=== PATIENT | female | born 1985 | race Caucasian/White ===

== ENCOUNTER → 2017-05-11 15:41 | Outpatient (CLI) | payer MEDICAID, SELFPAY ==
[2017-05-11 16:49] LABS: Absolute Lymphocyte Count 5.45 X10^3/ul (0.83-4.51); Absolute Neutrophil Count 7.5 X10^3/uL (2.0-7.7); Basophil# 0.06 X10^3/uL; Basophil% 0.4 % (0-1); Eosinophil# 0.38 X10^3/uL; Eosinophils% 2.7 % (0-5); Hematocrit 44.8 % (37-47); Hemoglobin 14.6 g/dl (12.0-15.0); Lymphocyte # 5.45 X10^3/ul (4.0); Lymphocyte % 38.6 % (19-41); Mean Corp Hgb Conc 32.6 g/gl (32-36); Mean Corpuscular Hgb 28.1 pg (27.0-32.0); Mean Corpuscular Volume 86.3 fL (81-99); Mean Platelet Vol. 9.4 fl (6.2-12.0); Monocyte# 0.71 X10^3/uL; Neutrophil # 7.48 X10^3/uL (2.7-7.7); Platelet Count 324 K/mm3 (150-450); RBC Distribution Width CV 13.9 % (11.6-14.6); RBC Distribution Width SD 43.6 fl (35.1-43.9); Red Blood Count 5.19 M/mm3 (4.2-5.4); White Blood Count 14.1 K/mm3 (4.4-11.0)
[2017-05-11 16:53] LABS: Differential Indicated SCAN CRITERIA MET; POSITIVE COUNT NO; POSITIVE DIFFERENTIAL YES; POSITIVE MORPHOLOGY NO
[2017-05-11 17:16] LABS: ALB/GLOB Ratio 1.1 RATIO (0.9-2.4); AST(SGOT) 17 U/L (15-37); Alanine Aminotransfer ALT/SGPT 38 U/L (13-56); Alkaline Phosphatase 93 U/L (45-117); Anion Gap 9 (5-15); BUN 13 mg/dL (7-18); BUN/Creat Ratio 17.8 RATIO (10-20); Calcium,Total 9.2 mg/dL (8.5-10.1); Chloride 105 mmol/L (98-107); Creatinine, Serum 0.73 mg/dL (0.55-1.02); EST Glomerular Filtration Rate 99 mL/min (>60); Est Glom Filt Rate - Afr Amer 120 mL/min (>60); Globulin 3.8 g/dL (2.2-4.2); Glucose 130 mg/dL (74-106); Potassium 3.6 mmol/L (3.5-5.1); Protein, Total 7.8 g/dL (6.4-8.2); Sodium Level 140 mmol/L (136-145); Thyroid Stim Hormone (TSH) 1.15 uIU/mL (0.358-3.74)
[2017-05-11 17:56] LABS: Platelet Estimate ADEQUATE (ADEQ)
[2017-05-12 08:53] LABS: Vitamin D,25 Hydroxy 21.1 ng/mL (29.95-100.01)
== END ==
PROVIDERS: Family Provider Family Medicine Geriatric Medicine; PCP Family Medicine Geriatric Medicine; Visit Provider Family Medicine Geriatric Medicine
DX: E55.9 Vitamin D deficiency, unspecified (principal); R53.83 Other fatigue
CPT/HCPCS: 36415; 80053; 82306; 84443; 85025

== ENCOUNTER 2017-05-31 05:37 | Emergency (ER) | payer MEDICAID, SELFPAY ==
[2017-05-31 05:38] VITALS: BP 167/109; PULSE 63; RESP 16; TEMP 36.6; O2SAT 96; BMI 35.0
--- NOTE | 2017-05-31 05:56 | ED.VISSUMM ---
- ER Visit Summary Date of Service: 05/31/17 Chief Complaint: Pruritic urticarial rash History of Present Illness: The patient is a 32 F presents with urticarial rash that is pruritic. Prior to going to bed there is slight erythema volar surface right wrist with raised area. She presents now because of itching all over and urticarial rash. She denies any ocular, visual auditory symptoms. She denies nasal congestion, postnasal drainage, sore throat or earache. She denies dysphonia or dysphagia. She denies swelling of her lips, tongue or throat. She denies shortness of breath or difficulty breathing. She denies palpitations or lightheadedness. She denies nausea vomiting or diarrhea. She denies abdominal pain. She reports allergy to amoxicillin and penicillin with similar reaction. She has taken no antibiotic in the past week. She is not consumed/ingested any berries, nuts or shellfish in the last 6-12 hours. Physical Examination: Vital signs remarkable blood pressure 167/89. Patient has an urticarial rash with multiple areas of excoriation. Head is atraumatic normocephalic. Pupils are equal round reactive. Extraocular muscles are intact. TMs are pearly white with landmarks noted. Nares patent with no drainage. Posterior pharynx without erythema or exudate. Uvula is midline. There is no dysphonia or dysphasia. There is no angioedema involving the face, lips, tongue or uvula. Trachea is midline. There is no stridor with auscultation of the neck. Heart is regular without murmur, gallop or rub. S1 and S2 are normal. Lungs are clear to auscultation with good movement of air bilaterally. Abdomen is soft nontender. Patient has an urticarial rash with areas of excoriation. Neuro exam is nonfocal. Test Results: None Emergency Department Course and Treatment: IV was established and patient was treated with 25 mg of Benadryl, 20 mg of Pepcid and 125 mg Solu-Medrol. Since this is not an anaphylactic reaction she was not given epinephrine. Patient was reassessed at 0645. She is no longer itching and her rash is 95% improved Treatment Plan: This is not an anaphylactic reaction she will be discharged with prescription for prednisone, Pepcid and Benadryl. She was instructed to follow-up with Dr. Novak for allergy testing Disposition: Discharged to home with outpatient follow-up in stable and improved condition Impression: Urticaria of unknown etiology This note was generated with [employer] dictation software. It may contain incorrect words, spelling, and punctuation that were not noted in review of the chart prior to signing ED Disposition - Plan for ED Patient: Disposition: Home or Assisted Living Chief Complaint: Allergic Reaction Instructions: ED Urticaria Prescriptions: Prednisone [Deltasone] 40 mg PO DAILY #6 tab Famotidine [Pepcid] 20 mg PO BID #6 tab DiphenhydrAMINE [Benadryl] 25 mg PO 4X/DAY #12 cap Referrals: Jerome Zacarias Chi, MD [Primary Care Provider] - 3-5 Days
[2017-05-31] MEDS: DiphenhydrAMINE 50 MG/ML Syringe 25 MG IV (06:00)
[2017-05-31] MEDS: MethylPREDNISolone 125 MG/2 ML Vial IV (06:00)
[2017-05-31 06:57] VITALS: BP 134/79; PULSE 67; RESP 15; O2SAT 98
== END 2017-05-31 07:00 | disposition home or self-care (01) ==
PROVIDERS: Emergency Provider Emergency Medicine; Family Provider Family Medicine Geriatric Medicine; PCP Family Medicine Geriatric Medicine
DX: L50.9 Urticaria, unspecified (principal); Z72.0 Tobacco use; Z79.84 Long term (current) use of oral hypoglycemic drugs; Z79.899 Other long term (current) drug therapy
CPT/HCPCS: 96374; 96375; 99284; A4216; J3490

== ENCOUNTER → 2017-06-07 12:08 | Outpatient (CLI) | payer MEDICAID, SELFPAY ==
[2017-06-12 03:07] LABS: Alternaria tenuis <0.10 kU/L (Class 0); Ash, White <0.10 kU/L (Class 0); Aspergillus fumigatus <0.10 kU/L (Class 0); Banana 0.25 kU/L (Class 0/I); Barley, Whole Grain <0.10 kU/L (Class 0); Beef <0.10 kU/L (Class 0); Bermuda Grass <0.10 kU/L (Class 0); Birch <0.10 kU/L (Class 0); Black Walnut <0.10 kU/L (Class 0); Carrot <0.10 kU/L (Class 0); Casein <0.10 kU/L (Class 0); Cashew <0.10 kU/L (Class 0); Cat Hair / Dander,Stand <0.10 kU/L (Class 0); Cedar, Mountain <0.10 kU/L (Class 0); Celery <0.10 kU/L (Class 0); Cheddar Cheese <0.10 kU/L (Class 0); Chicken <0.10 kU/L (Class 0); Chocolate <0.10 kU/L (Class 0); Cladosporium herbarum <0.10 kU/L (Class 0); Clam <0.10 kU/L (Class 0); Cockroach, American <0.10 kU/L (Class 0); Codfish <0.10 kU/L (Class 0); Corn <0.10 kU/L (Class 0); Cottonwood <0.10 kU/L (Class 0); Crab <0.10 kU/L (Class 0); D farinae Mite <0.10 kU/L (Class 0); D pteronyssinus <0.10 kU/L (Class 0); Dog Epithelia <0.10 kU/L (Class 0); Egg, White <0.10 kU/L (Class 0); Egg, Whole <0.10 kU/L (Class 0); Egg, Yolk <0.10 kU/L (Class 0); Elm, American White <0.10 kU/L (Class 0); Garlic <0.10 kU/L (Class 0); Gluten <0.10 kU/L (Class 0); Hazelnut/Filbert <0.10 kU/L (Class 0); Immunoglobulin E 66 IU/mL (0-100); Lettuce <0.10 kU/L (Class 0); Lobster <0.10 kU/L (Class 0); Maple/Box Elder <0.10 kU/L (Class 0); Milk (Cow) 0.45 kU/L (Class I); Mouse Urine <0.10 kU/L (Class 0); Mulberry, White <0.10 kU/L (Class 0); Oak, White <0.10 kU/L (Class 0); Oat <0.10 kU/L (Class 0); Onion <0.10 kU/L (Class 0); Orange <0.10 kU/L (Class 0); Pea <0.10 kU/L (Class 0); Peach <0.10 kU/L (Class 0); Peanut <0.10 kU/L (Class 0); Pecan <0.10 kU/L (Class 0); Penicillium Notatum <0.10 kU/L (Class 0); Pigweed, Rough <0.10 kU/L (Class 0); Pork <0.10 kU/L (Class 0); Potato, White <0.10 kU/L (Class 0); Ragweed, Short/Common <0.10 kU/L (Class 0); Rice <0.10 kU/L (Class 0); Russian Thistle <0.10 kU/L (Class 0); Rye <0.10 kU/L (Class 0); SCALLOP <0.10 kU/L (Class 0); SESAME SEED <0.10 kU/L (Class 0); Salmon <0.10 kU/L (Class 0); Sheep Sorrel <0.10 kU/L (Class 0); Shrimp <0.10 kU/L (Class 0); Soybean <0.10 kU/L (Class 0); Strawberry <0.10 kU/L (Class 0); Sycamore, American <0.10 kU/L (Class 0); Timothy Grass <0.10 kU/L (Class 0); Tomato <0.10 kU/L (Class 0); Tuna <0.10 kU/L (Class 0); Walnut, (Food) <0.10 kU/L (Class 0); Wheat <0.10 kU/L (Class 0); Yeast <0.10 kU/L (Class 0)
[2017-06-12 09:18] LABS: Apple <0.10 kU/L (Class 0)
[2017-06-12 09:19] LABS: Almond <0.10 kU/L (Class 0); Lactalbumin, Alpha 0.41 kU/L (Class I); Turkey <0.10 kU/L (Class 0)
== END ==
PROVIDERS: Family Provider Family Medicine Geriatric Medicine; PCP Family Medicine Geriatric Medicine; Visit Provider Family Medicine Geriatric Medicine
DX: T78.40XA Allergy, unspecified, initial encounter (principal)
CPT/HCPCS: 36415; 82785; 86003

== ENCOUNTER 2018-11-28 17:56 | Emergency (ER) | payer MEDICAID, SELFPAY ==
[2018-11-28 17:57] VITALS: BP 148/90; PULSE 74; RESP 18; TEMP 36.3; O2SAT 98; BMI 35.4
== END 2018-11-28 20:21 | disposition left against medical advice (07) ==
LOC: ED 20:08
PROVIDERS: Emergency Provider Emergency Medicine; Family Provider Family Medicine Geriatric Medicine; PCP Family Medicine Geriatric Medicine
DX: R20.0 Anesthesia of skin (principal)

== ENCOUNTER → 2019-05-02 | Outpatient (CLI) | payer MEDICAID, SELFPAY ==
[2019-05-02 17:24] LABS: Absolute Lymphocyte Count 4.74 X10^3/uL (0.83-4.51); Absolute Neutrophil Count 5.2 X10^3/uL (2.0-7.7); Basophil# 0.09 X10^3/uL; Basophil% 0.8 % (0-1); Eosinophil# 0.31 X10^3/uL; Eosinophils% 2.8 % (0-5); Hematocrit 44.4 % (37-47); Hemoglobin 14.2 g/dL (12.0-15.0); Lymphocyte # 4.74 X10^3/ul (4.0); Lymphocyte % 42.3 % (19-41); Mean Corpuscular Hgb 27.6 pg (27.0-32.0); Mean Corpuscular Volume 86.2 fL (81-99); Mean Platelet Vol. 9.4 fl (6.2-12.0); Monocyte% 7.1 % (0-10); NRBC Flagged by Analyzer 0 % (0-5); Neutrophil # 5.22 X10^3/uL (2.7-7.7); Neutrophil % 46.6 % (47-70); Platelet Count 305 K/mm3 (150-450); RBC Distribution Width CV 13.5 % (11.6-14.6); RBC Distribution Width SD 42.5 fl (35.1-43.9); Red Blood Count 5.15 M/mm3 (4.2-5.4); White Blood Count 11.2 K/mm3 (4.4-11.0)
[2019-05-02 18:05] LABS: ALB/GLOB Ratio 1.1 RATIO (0.9-2.4); AST(SGOT) 18 U/L (15-37); Alanine Aminotransfer ALT/SGPT 54 U/L (13-56); Albumin, Serum 3.9 g/dL (3.2-5.0); Alkaline Phosphatase 81 U/L (45-117); Anion Gap 6 (5-15); BUN 11 mg/dL (7-18); BUN/Creat Ratio 12.6 RATIO (10-20); Calcium,Total 8.7 mg/dL (8.5-10.1); Chloride 108 mmol/L (98-107); Creatinine, Serum 0.87 mg/dL (0.55-1.02); EST Glomerular Filtration Rate 80 mL/min (>60); Est Glom Filt Rate - Afr Amer 97 mL/min (>60); Globulin 3.5 g/dL (2.2-4.2); Glucose 75 mg/dL (74-106); Potassium 3.7 mmol/L (3.5-5.1); Protein, Total 7.4 g/dL (6.4-8.2); Sodium Level 138 mmol/L (136-145); Thyroid Stim Hormone (TSH) 1.76 uIU/mL (0.358-3.74)
== END | disposition home or self-care (01) ==
LOC: POLAB3 16:16
PROVIDERS: PCP Family Medicine Geriatric Medicine; Visit Provider Family Medicine Geriatric Medicine
DX: R53.83 Other fatigue (principal)
CPT/HCPCS: 36415; 80053; 84443; 85025

== ENCOUNTER → 2019-08-16 16:17 | Outpatient (CLI) | payer MEDICAID, SELFPAY ==
[2019-08-16 17:28] LABS: Absolute Lymphocyte Count 3.61 X10^3/uL (0.83-4.51); Absolute Neutrophil Count 9.3 X10^3/uL (2.0-7.7); Basophil# 0.06 X10^3/uL; Basophil% 0.4 % (0-1); Eosinophil# 0.21 X10^3/uL; Eosinophils% 1.5 % (0-5); Hematocrit 42.5 % (37-47); Hemoglobin 14.2 g/dL (12.0-15.0); Lymphocyte # 3.61 X10^3/ul (4.0); Lymphocyte % 25.7 % (19-41); Mean Corp Hgb Conc 33.4 g/dL (32-36); Mean Corpuscular Hgb 28.6 pg (27.0-32.0); Mean Corpuscular Volume 85.5 fL (81-99); Mean Platelet Vol. 9.6 fl (6.2-12.0); Monocyte# 0.74 X10^3/uL; Monocyte% 5.3 % (0-10); NRBC Flagged by Analyzer 0 % (0-5); Neutrophil # 9.32 X10^3/uL (2.7-7.7); Neutrophil % 66.5 % (47-70); Platelet Count 319 K/mm3 (150-450); RBC Distribution Width CV 13.6 % (11.6-14.6); RBC Distribution Width SD 42.2 fl (35.1-43.9); Red Blood Count 4.97 M/mm3 (4.2-5.4)
[2019-08-16 18:19] LABS: Color, Urine Yellow (Yellow); Glucose, Dipstick Normal (Normal); Ketone-Dipstick 50 mg/dl (Negative); Leukocyte Esterase-Dipstick Negative /ul (Negative); Nitrite-Dipstick Negative (Negative); Occult Blood-Urine Negative /ul (Negative); Protein-Dipstick Negative (Negative); Specific Gravity, Urine 1.025 (1.002-1.030); Urine Bilirubin Dipstick Negative (Negative); Urine Clarity Cloudy (Clear); Urine Urobilinogen Normal (Normal)
[2019-08-16 18:28] LABS: ALB/GLOB Ratio 0.9 RATIO (0.9-2.4); AST(SGOT) 11 U/L (15-37); Alanine Aminotransfer ALT/SGPT 21 U/L (13-56); Albumin, Serum 3.6 g/dL (3.2-5.0); Alkaline Phosphatase 67 U/L (45-117); Anion Gap 8 (5-15); BUN 6 mg/dL (7-18); BUN/Creat Ratio 9.6 RATIO (10-20); Calcium,Total 9.2 mg/dL (8.5-10.1); Chloride 107 mmol/L (98-107); Creatinine, Serum 0.62 mg/dL (0.55-1.02); EST Glomerular Filtration Rate 118 mL/min (>60); Est Glom Filt Rate - Afr Amer 143 mL/min (>60); Globulin 3.8 g/dL (2.2-4.2); Glucose 74 mg/dL (74-106); Potassium 3.6 mmol/L (3.5-5.1); Protein, Total 7.4 g/dL (6.4-8.2); Sodium Level 139 mmol/L (136-145); Thyroid Stim Hormone (TSH) 0.79 uIU/mL (0.358-3.74)
[2019-08-16 18:51] LABS: Amphetamine Urine VISTA NEGATIVE (<1000 ng/mL); Barbiturate Urine VISTA NEGATIVE (< 200 ng/mL); Benzodiazepine Urine VISTA NEGATIVE (< 200 ng/mL); Cocaine Urine VISTA NEGATIVE (< 300 ng/mL); Ecstacy Urine VISTA NEGATIVE (< 500 ng/mL); Methadone Urine VISTA NEGATIVE (< 300 ng/mL); PCP Urine VISTA NEGATIVE (< 25 ng/mL); THC Urine VISTA NEGATIVE (< 50 ng/mL); Vista UDS pH Range 5
[2019-08-16 19:11] LABS: Microalbumin,Random Urine 15.9 mg/L (NO RANGE EST.); Microalbumin:Creatinine Ratio 8.5 mg/g CRE (<30 mg/g CRE)
[2019-08-16 20:42] LABS: Hemoglobin A1c 5.4 % (3.8-5.6)
[2019-08-17 01:57] LABS: Prenatal RPR NONREACTIVE (NONREACTIVE)
[2019-08-17 10:38] LABS: HIV - WCH Non-Reactive (Nonreactive); Hepatitis B Surface Antigen Non-Reactive (Nonreactive); Hepatitis C Antibody Non-Reactive (Nonreactive); Vitamin D,25 Hydroxy 26.9 ng/mL
== END ==
PROVIDERS: PCP Family Medicine Geriatric Medicine; Visit Provider Obstetrics & Gynecology
DX: Z34.81 Encounter for supervision of other normal pregnancy, first trimester (principal)
CPT/HCPCS: 36415; 80053; 80307; 81002; 82043; 82306; 82570; 83036; 84443; 85025; 86703; 86762; 86803; 87340

== ENCOUNTER → 2019-09-13 | Outpatient (CLI) | payer MEDICAID, SELFPAY ==
[2019-09-13 13:19] LABS: Glucose Challenge Gest 1H 50g 212 mg/dL (70-140)
== END | disposition home or self-care (01) ==
LOC: WOBLAB 10:27
PROVIDERS: PCP Family Medicine Geriatric Medicine; Visit Provider Obstetrics & Gynecology
DX: Z34.82 Encounter for supervision of other normal pregnancy, second trimester (principal)
CPT/HCPCS: 36415; 82950

== ENCOUNTER 2019-10-04 13:17 | Outpatient (RCR) | payer MEDICAID, SELFPAY | END 2019-10-06 23:59 | LOC: DC 13:17 | PROVIDERS: PCP Family Medicine Geriatric Medicine; Visit Provider Obstetrics & Gynecology | DX: Z71.3 Dietary counseling and surveillance (principal); O24.410 Gestational diabetes mellitus in pregnancy, diet controlled; Z3A.00 Weeks of gestation of pregnancy not specified | CPT/HCPCS: 97802 ==

== ENCOUNTER 2019-10-09 10:38 | Outpatient (RCR) | payer MEDICAID, SELFPAY | END 2019-11-06 23:59 | LOC: DC 10:38 | PROVIDERS: PCP Family Medicine Geriatric Medicine; Visit Provider Obstetrics & Gynecology | DX: Z71.3 Dietary counseling and surveillance (principal); O24.410 Gestational diabetes mellitus in pregnancy, diet controlled; Z3A.00 Weeks of gestation of pregnancy not specified ==

== ENCOUNTER → 2019-10-09 | Outpatient (CLI) | payer MEDICAID, SELFPAY ==
[2019-10-12 04:09] LABS: AFP MoM Value 0.85 (.); AFP Value-EIA 32.2 ng/mL (.); Comment Report (.); DIA MoM Value 1.88 (.); DIA Value-EIA 278.77 pg/mL (.); DSR (By Age) 452 (.); DSR (Second Trimester) 320 (.); Gestat. Age Based On As provided (.); Gestational Age 18.1 WEEKS (.); Insulin Dep Diabetes No (.); Maternal Age At EDD 32.9 yr (.); hCG Value 35313 mIU/mL (.)
== END | disposition home or self-care (01) ==
LOC: WOBLAB 10:46
PROVIDERS: PCP Family Medicine Geriatric Medicine; Visit Provider Obstetrics & Gynecology
DX: Z34.82 Encounter for supervision of other normal pregnancy, second trimester (principal)
CPT/HCPCS: 36415; 82105; 82677; 84702

== ENCOUNTER 2019-12-27 09:35 | Outpatient (CLI) | payer MEDICAID, SELFPAY ==
[2019-12-27] VITALS (9 sets, daily range): BP systolic 139–159; BP diastolic 83–98; PULSE 68–73; TEMP 37.2–37.4; O2SAT 97; BMI 32.8
[2019-12-27 09:53] LABS: Hematocrit 39.4 % (37-47); Hemoglobin 12.6 g/dL (12.0-15.0); Mean Corpuscular Hgb 28.6 pg (27.0-32.0); Mean Corpuscular Volume 89.3 fL (81-99); Mean Platelet Vol. 9.4 fl (6.2-12.0); Platelet Count 305 K/mm3 (150-450); RBC Distribution Width CV 13.5 % (11.6-14.6); RBC Distribution Width SD 44.5 fl (35.1-43.9); Red Blood Count 4.41 M/mm3 (4.2-5.4); White Blood Count 14.2 K/mm3 (4.4-11.0)
[2019-12-27 10:43] LABS: ALB/GLOB Ratio 0.8 RATIO (0.9-2.4); AST(SGOT) 17 U/L (15-37); Alanine Aminotransfer ALT/SGPT 15 U/L (13-56); Albumin, Serum 2.9 g/dL (3.2-5.0); Alkaline Phosphatase 100 U/L (45-117); Anion Gap 7 (5-15); BUN 7 mg/dL (7-18); BUN/Creat Ratio 9.6 RATIO (10-20); Chloride 103 mmol/L (98-107); Creatinine, Serum 0.73 mg/dL (0.55-1.02); EST Glomerular Filtration Rate 98 mL/min (>60); Est Glom Filt Rate - Afr Amer 118 mL/min (>60); Globulin 3.8 g/dL (2.2-4.2); Glucose 177 mg/dL (74-106); Potassium 3.4 mmol/L (3.5-5.1); Protein, Total 6.7 g/dL (6.4-8.2); Sodium Level 135 mmol/L (136-145); Uric Acid 4.9 mg/dL (2.6-6.0)
--- NOTE | 2020-01-06 07:04 | OB.TRI.NOTE ---
- Problem List (1) Hypertension affecting Status: Acute Qualifiers: Trimester: third trimester Qualified Code(s): O16.3 - Unspecified maternal hypertension, third trimester History of Present Illness Date of Service: 12/27/19 Was patient seen by the physician?: No Reason For Visit: R/O PRE ECLAMPSIA Final REANNA: 03/10/20 Gestational age: 29 weeks 3 days History of Present Illness: 34yo G1 @ 29 3/7wga with cHTN and GDM sent to [facility] for evaluation of elevated BPs in the office. Denies headache, vision changes, abdominal pain. Allergies amoxicillin [From Augmentin] Allergy (Verified 11/28/18 18:00) Swelling clavulanic acid [From Augmentin] Allergy (Verified 11/28/18 18:00) Swelling Penicillins Allergy (Verified 11/28/18 18:00) Swelling - Pertinent Past Medical History Medical History: Past Medical History (Last Updated 01/06/20 @ 07:[address] Diane Conway MD) Chronic hypertension Laboratory Studies: Laboratory Tests 12/27/19 12/27/19 12/27/19 Range/Units 12:20 09:38 09:38 WBC 14.2 H (4.4-11.0) K/mm3 RBC 4.41 (4.2-5.4) M/mm3 Hgb 12.6 (12.0-15.0) g/dL Hct 39.4 (37-47) % MCV 89.3 (81-99) fL MCH 28.6 (27.0-32.0) pg MCHC 32.0 (32-36) g/dL RDW Std Deviation 44.5 H (35.1-43.9) fl RDW Coeff of Saad 13.5 (11.6-14.6) % Plt Count 305 (150-450) K/mm3 MPV 9.4 (6.2-12.0) fl Sodium 135 L (136-145) mmol/L Potassium 3.4 L (3.5-5.1) mmol/L Chloride 103 (98-107) mmol/L Carbon Dioxide 25.0 (21.0-32.0) mmol/L Anion Gap 7 (5-15) BUN 7 (7-18) mg/dL Creatinine 0.73 (0.55-1.02) mg/dL Est GFR (MDRD) Af Amer 118 (>60) mL/min Est GFR (MDRD) Non-Af 98 (>60) mL/min BUN/Creatinine Ratio 9.6 L (10-20) RATIO Glucose 177 H (74-106) mg/dL Uric Acid 4.9 (2.6-6.0) mg/dL Calcium 9.0 (8.5-10.1) mg/dL Total Bilirubin 0.20 (0.20-1.00) mg/dL AST 17 (15-37) U/L ALT 15 (13-56) U/L Alkaline Phosphatase 100 (45-117) U/L Total Protein 6.7 (6.4-8.2) g/dL Albumin 2.9 L (3.2-5.0) g/dL Globulin 3.8 (2.2-4.2) g/dL Albumin/Globulin Ratio 0.8 L (0.9-2.4) RATIO Blood Type O NEGATIVE Antibody Screen NEGATIVE Physical Exam Vitals: Vital Signs Temp Pulse BP Pulse Ox 99.3 F H 73 151/90 H 97 12/27/19 11:47 12/27/19 12:55 12/27/19 12:55 12/27/19 11:47 NST - FHR Rate Baby A Baseline: 140 Variability:: Moderate Accelerations:: 10 x 10 Decelerations:: None NST Reactive:: Yes, Appropriate for gestational age FHR Category:: Category I Uterine Activity:: 0/10 Impression/Plan 34yo @ 29 3/7wg with cHTN -BPs reviewed, mildly elevated here and preeclamptic labs negative. 24h urine also <<<300mg. -Start Labetalol PO -d/c home. f/u in offic.e
== END 2019-12-27 13:10 | disposition home or self-care (01) ==
LOC: LAB 09:37 → OBT 11:01
PROVIDERS: PCP Family Medicine Geriatric Medicine; Referring Provider Obstetrics & Gynecology; Visit Provider Obstetrics & Gynecology
DX: O13.3 Gestational [pregnancy-induced] hypertension without significant proteinuria, third trimester (principal); Z3A.00 Weeks of gestation of pregnancy not specified
CPT/HCPCS: 36415; 59025; 59050; 80053; 84550; 85027; 86850; 86900; 86901; 90384; 96372; 99218; G0378; J2790

== ENCOUNTER → 2020-01-01 | Outpatient (CLI) | payer MEDICAID, SELFPAY ==
[2020-01-01 09:50] LABS: 24 Hour Urine Protein 130.2 mg/24HR (<150 MG/24HR); 24HR. UA Prot. Total Volume 1400 mL; Urine Protein (24 Hour) 9.3 mg/dL (<11.9)
== END | disposition home or self-care (01) ==
LOC: LABSPEC 09:29
PROVIDERS: PCP Family Medicine Geriatric Medicine; Visit Provider Obstetrics & Gynecology
DX: O13.3 Gestational [pregnancy-induced] hypertension without significant proteinuria, third trimester (principal); Z3A.00 Weeks of gestation of pregnancy not specified
CPT/HCPCS: 81050; 84156

== ENCOUNTER → 2020-02-02 11:57 | Outpatient (CLI) | payer MEDICAID, SELFPAY ==
[2019-12-27 11:20] VITALS: BMI 32.8
--- NOTE | 2020-02-02 12:00 | US_ITS ---
HISTORY: well being. Biophysical profile. 40 images as well as 8 cine clips. No comparison imaging from this . Findings: Transabdominal imaging: Presentation is cephalic. Flow is present within the umbilical cord. The placenta is posterior fundal. heart motion is detected by M-mode imaging at 138 bpm. PRIMITIVO is 16.3 cm. The cervix is obscured by ossification within the skull, but perceived to be closed. The cervix is measured at about 3.9 cm Cine clips demonstrate pulsations within the aorta as well as breathing motion. US/Biophysical Prof W/O Non Stres IMPRESSION: SLIUP. Biophysical profile score is 8 out of 8.. at [id number] Reported and signed by: Moe Bailey MD Electronically Signed: Moe Bailey MD at 22:43 EST Tel , Service support ,
== END ==
PROVIDERS: PCP Family Medicine Geriatric Medicine; Referring Provider Obstetrics & Gynecology; Visit Provider Obstetrics & Gynecology
DX: O41.03X1 Oligohydramnios, third trimester, fetus 1 (principal); Z3A.00 Weeks of gestation of pregnancy not specified
CPT/HCPCS: 76819

== ENCOUNTER → 2020-02-16 | Outpatient (CLI) | payer MEDICAID, SELFPAY ==
[2019-12-27 11:20] VITALS: BMI 32.8
== END | disposition home or self-care (01) ==
LOC: LABSPEC 14:44
PROVIDERS: PCP Family Medicine Geriatric Medicine; Visit Provider Obstetrics & Gynecology
DX: Z36.85 Encounter for antenatal screening for Streptococcus B (principal)
CPT/HCPCS: 87081

== ENCOUNTER 2020-02-20 18:20 | Inpatient (IN) | payer MEDICAID, SELFPAY ==
[2019-12-27 11:20] VITALS: BMI 32.8
[2020-02-20] VITALS (8 sets, daily range): BP systolic 135–195; BP diastolic 76–95; PULSE 64–75; TEMP 37.1–37.3; O2SAT 98; BMI 34.9
[2020-02-20] MEDS: Lactated Ringers 1,000 ML 50 ML IV (20:00)
[2020-02-20 20:17] LABS: Absolute Lymphocyte Count 4.16 X10^3/uL (0.83-4.51); Absolute Neutrophil Count 9.8 X10^3/uL (2.0-7.7); Basophil# 0.07 X10^3/uL; Basophil% 0.5 % (0-1); Eosinophil# 0.24 X10^3/uL; Eosinophils% 1.6 % (0-5); Hematocrit 37.9 % (37-47); Hemoglobin 12.7 g/dL (12.0-15.0); Lymphocyte # 4.16 X10^3/ul (4.0); Lymphocyte % 27.1 % (19-41); Mean Corp Hgb Conc 33.5 g/dL (32-36); Mean Corpuscular Hgb 28.9 pg (27.0-32.0); Mean Corpuscular Volume 86.3 fL (81-99); Mean Platelet Vol. 10.1 fl (6.2-12.0); Monocyte# 0.93 X10^3/uL; Monocyte% 6.1 % (0-10); NRBC Flagged by Analyzer 0 % (0-5); Neutrophil # 9.75 X10^3/uL (2.7-7.7); Neutrophil % 63.5 % (47-70); Platelet Count 287 K/mm3 (150-450); RBC Distribution Width SD 43.4 fl (35.1-43.9); Red Blood Count 4.39 M/mm3 (4.2-5.4); White Blood Count 15.3 K/mm3 (4.4-11.0)
[2020-02-20 20:20] LABS: Bedside Glucose 137 mg/dL (70-110)
[2020-02-20] MEDS: Labetalol 200 MG Tablet PO (20:35)
[2020-02-20 20:58] LABS: Protein, Urine (Random) 8.6 mg/dL (<11.9); Protein:Creat Ratio 100 mg/g CRE (0-200)
[2020-02-20 21:00] LABS: AST(SGOT) 18 U/L (15-37); Alanine Aminotransfer ALT/SGPT 19 U/L (13-56); Creatinine, Serum 0.65 mg/dL (0.55-1.02); EST Glomerular Filtration Rate 112 mL/min (>60); Est Glom Filt Rate - Afr Amer 136 mL/min (>60); Estimated Creatinine Clearance 98.27 ml/min
--- NOTE | 2020-02-20 21:02 | HP.PCM_ITS ---
- Problem List (1) 37 weeks gestation of Status: Acute (2) Gestational diabetes Status: Acute Qualifiers: Gestational diabetes mellitus control: oral hypoglycemic-controlled Trimester: third trimester Qualified Code(s): O24.415 - Gestational diabetes mellitus in , controlled by oral hypoglycemic drugs (3) Hypertension affecting Status: Acute Qualifiers: Trimester: third trimester History Date of Admission: 02/20/20 Final REANNA: 03/10/20 Final REANNA Source: US <20 weeks Gestational age: 37 Weeks and 2 Days History of this : This is a 34 year-old, G [1], P [], at 37 2/7 weeks gestational age with hx cHTN, gestational diabetes with IUGR presents for scheduled induction of labor. Issues -hx PCOS -chronic hypertension -Low Vitamin D -IUGR - EFW [id number] 02/16/20 -Gestational diabetes Medical History: Medical History (Last Updated 02/20/20 @ 21:[address] Diane Conway MD) Polycystic ovarian syndrome E28.2 Chronic hypertension I10 Allergies amoxicillin [From Augmentin] Allergy (Verified 02/20/20 19:48) Swelling clavulanic acid [From Augmentin] Allergy (Verified 02/20/20 19:48) Swelling Penicillins Allergy (Verified 02/20/20 19:48) Swelling Home Medications: Home Medications Metformin HCl 500 mg PO BID 05/31/17 Cholecalciferol (VIT D3) [Vitamin D3] 1,000 units PO DAILY 12/27/19 Vits [Prenatabs FA] 1 tab PO DAILY 12/27/19 Labetalol [Trandate] 100 mg PO BID 02/20/20 Smoking Status: Light Smoker (<10/day) Alcohol: None Number of Fetus(es): 1 NST - FHR Rate Baby A Baseline: 135 Variability:: Moderate Accelerations:: 15 x 15 Decelerations:: None NST Reactive:: Yes FHR Category:: Category I Uterine Activity:: 0/10 min History Past Pregnancies: Past Pregnancies Delivery Date Name GA/ Weeks Outcome Route Wt Sex Labor Length Anesthesia Delivery Location Provider FOB Labs: Mom's Problem List Problem Status Onset Code Hypertension affecting Chronic O16.9 37 weeks gestation of Acute Z3A.37 Gestational diabetes Acute O24.419 Mom's Labs & Results 02/20/20 02/20/20 02/20/20 20:00 20:00 20:00 WBC 15.3 H RBC 4.39 Hgb 12.7 Hct 37.9 MCV 86.3 MCH 28.9 MCHC 33.5 RDW Std Deviation 43.4 RDW Coeff of Saad 14.0 Plt Count 287 MPV 10.1 Immature Gran % (Auto) 1.200 H Neut % (Auto) 63.5 Lymph % (Auto) 27.1 [place] % (Auto) 6.1 Eos % (Auto) 1.6 Baso % (Auto) 0.5 Absolute Neuts (auto) 9.8 H Absolute Lymphs (auto) 4.16 Nucleated RBC % 0 PT 12.3 INR 1.0 APTT 27.2 Sodium Potassium Chloride Carbon Dioxide Anion Gap BUN Creatinine Estim Creat Clear Calc Est GFR (MDRD) Af Amer Est GFR (MDRD) Non-Af BUN/Creatinine Ratio Glucose Uric Acid Calcium Total Bilirubin AST ALT Alkaline Phosphatase Total Protein Albumin U Random Total Protein Urine Creatinine Protein/Creatinin Ratio POC Glucose Blood Type Pending Antibody Screen Pending 02/20/20 02/20/20 02/20/20 20:00 20:15 20:35 WBC RBC Hgb Hct MCV MCH MCHC RDW Std Deviation RDW Coeff of Saad Plt Count MPV Immature Gran % (Auto) Neut % (Auto) Lymph % (Auto) [place] % (Auto) Eos % (Auto) Baso % (Auto) Absolute Neuts (auto) Absolute Lymphs (auto) Nucleated RBC % PT INR APTT Sodium Pending Potassium Pending Chloride Pending Carbon Dioxide Pending Anion Gap Pending BUN Pending Creatinine Pending 0.65 Estim Creat Clear Calc 98.27 Est GFR (MDRD) Af Amer Pending 136 Est GFR (MDRD) Non-Af Pending 112 BUN/Creatinine Ratio Pending Glucose Pending Uric Acid 6.0 Calcium Pending Total Bilirubin Pending AST Pending 18 ALT Pending 19 Alkaline Phosphatase Pending Total Protein Pending Albumin Pending U Random Total Protein Urine Creatinine Protein/Creatinin Ratio POC Glucose 137 H Blood Type Antibody Screen 02/20/20 20:35 WBC RBC Hgb Hct MCV MCH MCHC RDW Std Deviation RDW Coeff of Saad Plt Count MPV Immature Gran % (Auto) Neut % (Auto) Lymph % (Auto) [place] % (Auto) Eos % (Auto) Baso % (Auto) Absolute Neuts (auto) Absolute Lymphs (auto) Nucleated RBC % PT INR APTT Sodium Potassium Chloride Carbon Dioxide Anion Gap BUN Creatinine Estim Creat Clear Calc Est GFR (MDRD) Af Amer Est GFR (MDRD) Non-Af BUN/Creatinine Ratio Glucose Uric Acid Calcium Total Bilirubin AST ALT Alkaline Phosphatase Total Protein Albumin U Random Total Protein 8.6 Urine Creatinine 86.00 Protein/Creatinin Ratio 100 POC Glucose Blood Type Antibody Screen Course Did the patient receive Yes care? Labs Blood Type: O RH: NEGATIVE RPR/VDRL/Syphilis Nonreactive Rubella status Immune HbSAg Negative Date Done: 08/16/19 Chlamydia Negative Gonorrhea Negative HIV/AIDS Non-Reactive Group B Strep: Negative Current Obstetrical History Gestational Diabetes No Incompetent Cervix No Infertility No IUGR Yes Macrosomia No Hypertension/Pre-eclampsia Yes Placenta Previa/Abruption No PTL/PROM No Uterine anomaly No Oligohydramnios No Polyhydramnios No Multiple gestation No Past Medical History Asthma No Diabetes No Hypertension No Heart disease No Mitral valve prolapse No Neurologic/Seizure disorder/ No Migraines Kidney disease No Liver disease No Varicosities No Clotting disorders/Hx of DVT No Thyroid Dysfunction No Other medical diseases No Psychiatric disorders No Major trauma No Abnormal PAP smear No Sleep apnea No Mammogram in the last 2 years Yes: 2020 [facility] DETAILS of medical Routine mammogram history Social History Marital Status: SINGLE Alleged father Ed Hx Smoking Yes Smoking Status Current every day smoker Expected Infant Delivery Method: Spontaneous Vaginal Number of Visits: 10 Review of Systems Constitutional: Denies: Chills, Fever Cardiovascular: Denies: Chest Pain Respiratory: Denies: Cough Gastrointestinal: Denies: Abdominal Pain, Nausea, Vomiting Gynecological: Reports: - - Denies contractions, leaking of fluid. Denies: Vaginal bleeding Physical Exam Vitals: Vital Signs Temp Pulse BP Pulse Ox 99.2 F H 70 158/91 H 98 02/20/20 19:33 02/20/20 20:08 02/20/20 20:08 02/20/20 19:34 General: Alert, Oriented x3, Cooperative, No apparent distress HEENT: Atraumatic, Normocephalic Cardiovascular: Regular rate, Regular Rhythm, Normal S1, Normal S2 Lungs: Clear to auscultation, Normal air movement Abdomen: Soft, Non Tender, Non-Distended, Gravid Extremities:: No edema Neurological: Neuro grossly intact Estimated gestational size: Small for gestational age Assessment/Plan All Active Problems (Last Updated 02/20/20 @ 21:[address] 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 Preeclamptic labs pending. -Home dose metformin ordered - status overall reassuring -Pt refuses COVID19 screening
[2020-02-20 21:05] LABS: Prothrombin Time (Protime)PT. 12.3 SECONDS (11.7-14.9)
[2020-02-20 21:06] LABS: Partial Thromboplast Time 27.2 Seconds (24.1-36.2)
[2020-02-20 21:12] LABS: ALB/GLOB Ratio 0.8 RATIO (0.9-2.4); AST(SGOT) 18 U/L (15-37); Alanine Aminotransfer ALT/SGPT 19 U/L (13-56); Albumin, Serum 2.9 g/dL (3.2-5.0); Alkaline Phosphatase 154 U/L (45-117); Anion Gap 8 (5-15); BUN 9 mg/dL (7-18); BUN/Creat Ratio 13.9 RATIO (10-20); Calcium,Total 9.2 mg/dL (8.5-10.1); Chloride 108 mmol/L (98-107); Creatinine, Serum 0.65 mg/dL (0.55-1.02); EST Glomerular Filtration Rate 112 mL/min (>60); Est Glom Filt Rate - Afr Amer 136 mL/min (>60); Estimated Creatinine Clearance 98.27 ml/min; Globulin 3.8 g/dL (2.2-4.2); Glucose 134 mg/dL (74-106); Potassium 3.7 mmol/L (3.5-5.1); Protein, Total 6.7 g/dL (6.4-8.2); Sodium Level 139 mmol/L (136-145)
[2020-02-20] MEDS: Oxytocin 30 units/NS 500 ml 30 UNITS/500 ML IV.SOLN IV (21:12)
[2020-02-20 21:30] LABS: Bedside Glucose 126 mg/dL (70-110)
[2020-02-20] MEDS: metFORMIN (XR) 500 MG Tablet 1000 MG PO (22:46)
[2020-02-21] VITALS (62 sets, daily range): BP systolic 115–197; BP diastolic 64–110; PULSE 8–88; TEMP 36.2–37.3; O2SAT 81–99
[2020-02-21 00:51] LABS: Bedside Glucose 94 mg/dL (70-110)
[2020-02-21] MEDS: miSOPROStol 25 MCG TABLET PO (01:57)
[2020-02-21 04:56] LABS: Bedside Glucose 90 mg/dL (70-110)
[2020-02-21] MEDS: miSOPROStol 25 MCG TABLET 50 MCG PO ×2 (05:50→12:44)
--- NOTE | 2020-02-21 07:50 | PCM.PN.BLA ---
Progress Note LABOR PROGRESS NOTE Page has no complaints this morning. Denies contractions. AVSS GEN - NAD, AAO x 3 FHR 135, moderate variability, + accelerations, no decelerations TOCO 10 SVE deferred, reecnt exam /-3 at 0547 by RN A/P: 34yo G1 @ 37 3/7 wga, IOL for cHTN, GDMA2, IUGR, Cat I FHR -s/p misoprostol 25mcg. 50mcg given approximately 0600h this morning. -Pt to eat breakfast -Blood sugars improved following evening dose Metformin - will plan for qd Metformin 1000mg. Home dose not available. -BPs improved - continue Labetalol. Preeclamptic labs reviewed overnight and wnl. STROKE Vital Signs/Narrative: Vital Signs Temp Pulse BP Pulse Ox 02/21/20 05:45 64 98 02/21/20 05:43 97.2 F L 63 124/73 H 02/21/20 04:46 65 131/68 H 02/21/20 04:45 98.7 F
[2020-02-21 08:15] LABS: Bedside Glucose 76 mg/dL (70-110)
[2020-02-21] MEDS: Labetalol 200 MG Tablet PO ×3 (08:41→22:49)
[2020-02-21] MEDS: Labetalol (Prefilled) 20 MG/4 ML 10 MG IV (09:00)
[2020-02-21] MEDS: 0.9% Saline Lock 10 ML Syringe IV (09:02)
[2020-02-21 10:46] LABS: Bedside Glucose 84 mg/dL (70-110)
[2020-02-21] MEDS: 0.9% Normal Saline Single 100 ML IV.SOLN. INTRA-UTER (13:12)
[2020-02-21] MEDS: Prenatal Vits Tablet 1 TABLET PO (13:15)
--- NOTE | 2020-02-21 13:16 | PCM.PN.BLA ---
Progress Note LABOR PROGRESS NOTE Has mild contractions. AVSS GEN - NAD, AAO x 3 FHR 130, moderate variability, + accelerations, no decelerations TOCO irritability SVE /-3 A/P: 34yo G1 @ 37 3/7 wga, Cat I FHR -GDMA on Metformin -cHTN - Labetalo increased to tid 200mg -Maternal and statuses reassuring -Horta bulb placed, 30cc saline STROKE Vital Signs/Narrative: Vital Signs Temp Pulse BP Pulse Ox 02/21/20 12:45 98.6 F 88 140/69 H 98 02/21/20 11:50 98.4 F 66 115/65 97 02/21/20 10:33 64 139/86 H 02/21/20 09:57 63 145/85 H 02/21/20 09:55 98.5 F 60 98 02/21/20 09:29 61 148/78 H
[2020-02-21] MEDS: Lactated Ringers 500 ML 999 ML IV ×2 (14:10→23:34)
[2020-02-21] MEDS: Lactated Ringers 1,000 ML 50 ML IV (14:10)
[2020-02-21] MEDS: fentaNYL-bupivacaine (epidural) 100 ML BAG EPIDURAL ×2 (15:39→20:59)
[2020-02-21 16:21] LABS: Bedside Glucose 119 mg/dL (70-110)
[2020-02-21] MEDS: metFORMIN (XR) 500 MG Tablet 1000 MG PO (16:47)
[2020-02-21 17:05] LABS: Bedside Glucose 123 mg/dL (70-110)
[2020-02-21] MEDS: Oxytocin 30 units/NS 500 ml 30 UNITS/500 ML IV.SOLN IV (17:40)
[2020-02-21 18:00] LABS: Bedside Glucose 95 mg/dL (70-110)
[2020-02-21] MEDS: Lactated Ringers 1,000 ML 200 ML IV (19:13)
[2020-02-21 19:26] LABS: Bedside Glucose 81 mg/dL (70-110)
[2020-02-21 21:01] LABS: Bedside Glucose 64 mg/dL (70-110)
[2020-02-21 21:01] LABS: Bedside Glucose 56 mg/dL (70-110)
[2020-02-21 21:40] LABS: Bedside Glucose 101 mg/dL (70-110)
[2020-02-21 22:41] LABS: Bedside Glucose 75 mg/dL (70-110)
[2020-02-22] VITALS (125 sets, daily range): BP systolic 102–181; BP diastolic 56–100; PULSE 66–109; RESP 12–20; TEMP 36.3–37.6; O2SAT 93–100
[2020-02-22] MEDS: Labetalol (Prefilled) 20 MG/4 ML 10 MG IV (00:42)
[2020-02-22 01:00] LABS: Bedside Glucose 76 mg/dL (70-110)
[2020-02-22] MEDS: Labetalol (Prefilled) 20 MG/4 ML IV (01:00)
[2020-02-22] MEDS: Lactated Ringers 1,000 ML 200 ML IV (01:06)
[2020-02-22] MEDS: 0.9% Saline Lock 10 ML Syringe IV ×2 (01:10→01:15)
[2020-02-22] MEDS: Magnesium Sulfate 4gm/100mL 4 GM/100 ML IV.SOLN. IV (01:15)
[2020-02-22] MEDS: Labetalol (Prefilled) 20 MG/4 ML 40 MG IV (01:18)
[2020-02-22 01:25] LABS: Hematocrit 35.8 % (37-47); Hemoglobin 12.1 g/dL (12.0-15.0); Mean Corp Hgb Conc 33.8 g/dL (32-36); Mean Corpuscular Hgb 29.3 pg (27.0-32.0); Mean Corpuscular Volume 86.7 fL (81-99); Mean Platelet Vol. 10.3 fl (6.2-12.0); Platelet Count 246 K/mm3 (150-450); RBC Distribution Width CV 14.1 % (11.6-14.6); RBC Distribution Width SD 44.7 fl (35.1-43.9); Red Blood Count 4.13 M/mm3 (4.2-5.4); White Blood Count 21.1 K/mm3 (4.4-11.0)
[2020-02-22 01:26] LABS: Bedside Glucose 71 mg/dL (70-110)
[2020-02-22] MEDS: Magnesium Sulfate 20 GM/500 ML BAG IV ×2 (01:37→11:50)
[2020-02-22 01:40] LABS: AST(SGOT) 12 U/L (15-37); Alanine Aminotransfer ALT/SGPT 16 U/L (13-56); Uric Acid 5.4 mg/dL (2.6-6.0)
[2020-02-22 02:41] LABS: Bedside Glucose 75 mg/dL (70-110)
[2020-02-22] MEDS: fentaNYL-bupivacaine (epidural) 100 ML BAG EPIDURAL ×2 (03:45→10:04)
[2020-02-22] MEDS: Labetalol 200 MG Tablet PO ×2 (04:00→04:30)
[2020-02-22] MEDS: Ondansetron 4 MG/2 ML Vial IV (04:11)
[2020-02-22 05:11] LABS: Bedside Glucose 69 mg/dL (70-110)
[2020-02-22 05:11] LABS: Bedside Glucose 87 mg/dL (70-110)
[2020-02-22 05:56] LABS: Bedside Glucose 87 mg/dL (70-110)
[2020-02-22 06:50] LABS: Bedside Glucose 91 mg/dL (70-110)
--- NOTE | 2020-02-22 07:49 | PCM.PN.BLA ---
Progress Note LABOR PROGRESS NOTE No complaints. Vital Signs Temp Pulse Resp BP Pulse Ox 02/22/20 07:34 97.4 F L 87 12 102/56 L 96 02/22/20 07:29 87 102/56 L 02/22/20 07:28 84 94 02/22/20 07:27 97.9 F 87 96 02/22/20 06:16 99.6 F H 86 16 123/64 H 96 02/22/20 06:15 96 02/22/20 05:30 86 96 02/22/20 05:29 81 94 02/22/20 05:25 83 96 02/22/20 05:23 79 94 02/22/20 05:20 87 98 02/22/20 05:19 97 02/22/20 05:16 87 94 02/22/20 05:10 96 96 02/22/20 05:05 87 96 02/22/20 05:04 98.6 F 89 12 126/69 H 97 02/22/20 05:03 93 02/22/20 05:00 88 94 02/22/20 04:55 89 94 02/22/20 04:50 87 94 02/22/20 04:47 99 94 02/22/20 04:45 89 94 02/22/20 04:40 87 94 02/22/20 04:35 86 97 02/22/20 04:33 86 16 127/69 H 97 02/22/20 04:30 88 95 02/22/20 04:29 88 94 02/22/20 04:25 86 97 02/22/20 04:24 91 94 02/22/20 04:20 91 95 02/22/20 04:18 90 94 02/22/20 04:15 89 96 02/22/20 04:10 94 97 02/22/20 04:05 103 H 96 02/22/20 04:01 98.4 F 90 16 131/79 H 96 02/22/20 04:00 94 96 02/22/20 03:55 90 95 02/22/20 03:50 89 97 02/22/20 03:45 86 96 02/22/20 03:40 87 96 02/22/20 03:35 88 96 02/22/20 03:30 89 97 02/22/20 03:29 85 16 144/85 H 95 02/22/20 03:25 83 96 02/22/20 03:20 84 97 02/22/20 03:15 82 95 02/22/20 03:14 99.3 F H 83 18 141/82 H 96 02/22/20 03:10 86 96 02/22/20 03:05 85 97 02/22/20 03:00 83 96 02/22/20 02:59 83 140/81 H 96 02/22/20 02:55 92 97 02/22/20 02:50 81 96 02/22/20 02:45 83 96 02/22/20 02:44 80 136/80 H 02/22/20 02:43 99.1 F 83 20 H 136/80 H 96 02/22/20 02:40 84 96 02/22/20 02:35 84 95 02/22/20 02:30 84 96 02/22/20 02:28 83 137/82 H 96 02/22/20 02:25 84 96 02/22/20 02:20 81 97 02/22/20 02:18 81 18 142/82 H 96 02/22/20 02:15 84 96 02/22/20 02:10 93 98 02/22/20 02:08 87 154/89 H 98 02/22/20 02:05 85 95 02/22/20 02:00 92 96 02/22/20 01:59 83 16 153/92 H 96 02/22/20 01:55 87 96 02/22/20 01:53 87 94 02/22/20 01:50 96 95 02/22/20 01:49 85 18 147/92 H 95 02/22/20 01:45 96 96 02/22/20 01:40 93 96 02/22/20 01:38 90 125/69 H 02/22/20 01:37 98.3 F 96 16 97 02/22/20 01:35 95 95 02/22/20 01:30 98.9 F 96 20 H 129/69 H 95 02/22/20 01:28 93 02/22/20 01:25 96 96 02/22/20 01:15 108 H 168/92 H 02/22/20 01:12 109 H 168/92 H 02/22/20 00:56 85 178/100 H 02/22/20 00:40 86 175/96 H 02/22/20 00:24 84 181/99 H 02/22/20 00:21 98.5 F 02/22/20 00:17 91 96 02/22/20 00:12 81 98 02/22/20 00:10 88 120/83 H 02/21/20 23:59 180/110 H 02/21/20 23:40 76 188/105 H 02/21/20 23:27 98.9 F 02/21/20 23:24 74 182/103 H 97 02/21/20 22:26 69 96 02/21/20 22:25 99.1 F 146/90 H 02/21/20 21:32 62 98 02/21/20 21:31 98.4 F 146/85 H 02/21/20 20:41 62 148/89 H 02/21/20 20:25 69 97 02/21/20 20:24 98.8 F 71 164/87 H FHR 135, moderate variability, no accelerations, + variable deceleration TOCO 1-2/10 min SVE deferred, recent exam 9. a/p: 34yo G1 @ 37 4/7wga, IOL, hx GDMA2, cHTN, IUGR -Rpt exam approximately 0830h, if unchanged will start pitocin, if FD, proceed with second stage -Maternal and statuses overall reassuring STROKE Vital Signs/Narrative: Vital Signs Temp Pulse Resp BP Pulse Ox 02/22/20 07:34 97.4 F L 87 12 102/56 L 96 02/22/20 07:29 87 102/56 L 02/22/20 07:28 84 94 02/22/20 07:27 97.9 F 87 96 02/22/20 06:16 99.6 F H 86 16 123/64 H 96 02/22/20 06:15 96 02/22/20 05:30 86 96 02/22/20 05:29 81 94 02/22/20 05:25 83 96 02/22/20 05:23 79 94 02/22/20 05:20 87 98 02/22/20 05:19 97 02/22/20 05:16 87 94 02/22/20 05:10 96 96 02/22/20 05:05 87 96 02/22/20 05:04 98.6 F 89 12 126/69 H 97 12/17/20 05:03 93 20 05:00 88 94 20 04:55 89 94 20 04:50 87 94 20 04:47 99 94 20 04:45 89 94 20 04:40 87 94 02/22/20 04:35 86 97 02/22/20 04:33 86 16 127/69 H 97 02/22/20 04:30 88 95 02/22/20 04:29 88 94 20 04:25 86 97 02/22/20 04:24 91 94 20 04:20 91 95 02/22/20 04:18 90 94 02/22/20 04:15 89 96 02/22/20 04:10 94 97 02/22/20 04:05 103 H 96 02/22/20 04:01 98.4 F 90 16 131/79 H 96 02/22/20 04:00 94 96 02/22/20 03:55 90 95 02/22/20 03:50 89 97
[2020-02-22 08:00] LABS: Bedside Glucose 93 mg/dL (70-110)
[2020-02-22 08:36] LABS: Bedside Glucose 101 mg/dL (70-110)
[2020-02-22 10:05] LABS: Bedside Glucose 96 mg/dL (70-110)
[2020-02-22 10:56] LABS: Bedside Glucose 112 mg/dL (70-110)
[2020-02-22] MEDS: Oxytocin 30 units/NS 500 ml 30 UNITS/500 ML IV.SOLN 334 UNITS IV (11:57)
--- NOTE | 2020-02-22 12:09 | PCM.OPRPT ---
Vaginal Delivery Maternal Presentation: Medically Indicated Induction Method of Induction: Pitocin, Horta Bulb, Amniotomy Medical Reason for Induction: Gestational Hypertension, - - Intrauterine Growth Restriction Amniotic Membrane Rupture Type: Artificial Amniotic Fluid Description: Moderate meconium Final REANNA: 03/10/20 Final REANNA Source: US <20 weeks Gestational age: 37 Weeks and 4 Days [facility] doctor who attended delivery (if requested by OB): Misty Feliz MSBharati Date of Procedure: 02/22/20 Pre-Operative Diagnosis: IUP, Gestational Hypertension, IUGR, Gestational Diabetes Type A2 Post-Operative Diagnosis: IUP, Gestational Hypertension, IUGR, Gestational Diabetes Type A2 Surgery/ Procedure Performed: Vacuum Assisted Vaginal Delivery Type of Anesthesia: Epidural Description of Procedure: Spontaneous vaginal delivery of a viable male with Apgars of 8/9 from an occiput anterior presentation with moderately thick meconium stained fluid and three-vessel placenta. Cord around the neck x1 tight. No episiotomy or laceration. Kiwi vacuum used x1 gentle pull from low outlet to expedite delivery of the head due to deep variable decelerations with pushing. Sponges okay. Delivery physician: Jatinder Alfredo MD. Presentation: Vertex Placental Delivery Description: Spontaneous Placenta Disposition: Sent to Pathology Cord Vessel Description: 3 Vessels Cord Gases drawn per routine: ABG, VBG Cord Entanglement: Around neck x 1, tight Drain: Horta to straight drain Estimated Blood Loss: 250 cc Infant A gender: Male (1 minute): 8 (5 minute): 9 Episiotomy Description: None Laceration: None Medications given after delivery: IV Pitocin Complications: None
--- NOTE | 2020-02-22 12:17 | PLAC_PTH ---
PATIENT: BROOKLYNN YOU LOC: [facility] U#:[id number] AGE/SX: 34/F ROOM: WP014 RE02/20/[address]: Dr. Jatinder Alfredo MD : 1985 BED: 1 DIS: 02/23/2020 SPEC #: [id number] RECD: 02/22/20 13:21 STATUS: MARCK REQ #: [id number] IGNACIO: 02/22/20 12:[address]: Jatinder Alfredo DEPT: SURGICAL PATHOLOGY RECD BY: Sherri Carpio ENTERED: 02/23/20 08:04 SP TYPE: PLACENTA OTHR DR: Dr. Jerome Zacarias MD Tissues: Placenta, NOS Procedures: Surgery Specimen Level V HEADER OPERATION: Vaginal delivery PRE-OP DIAGNOSIS: Meconium stained fluid TISSUE SUBMITTED: Placenta MICROSCOPIC DIAGNOSIS Placenta: Placental disc - third trimester placenta (447 gm). Focal acute vasculitis of subamniotic blood vessels. Membranes - moderate acute chorioamnionitis. Umbilical cord - three blood vessels and moderate acute funisitis. SJ:donato 02/26/20 MICROSCOPIC DESCRIPTION Slides are reviewed. GROSS DESCRIPTION SPECIMEN: PLACENTA / CLINICAL INFORMATION: A. Weight: 2.49 kg B. Gestational Age: 37 weeks C. Sex: Male PLACENTAL WEIGHT (POST FIXATION): 447 gm PLACENTAL DIMENSIONS: 18 x 17 x 3 cm PLACENTAL SHAPE: Usual ovoid PLACENTAL WEIGHT FOR GESTATIONAL AGE: Within 10-99th percentile MEMBRANES - Present A. Insertion: Marginal B. Site of rupture from edge: 3 cm from edge of placental disc C. Color of membrane: Rolon-villafuerte D. Abnormalities: None UMBILICAL CORD - Present A. Color: Rolon-villafuerte B. Insertion: Near central C. Length: 37 cm D. Diameter: 1.5 cm E. Number of vessels: Three F. Abnormalities: None PLACENTAL DISC - Present A. Color of surface: Rolon-villafuerte B. surface abnormalities: None C. Maternal cotyledons: Intact with minimal tears D. Attached retro placental clot: No clot E. Cut surface: Dark red and spongy F. Lesions: None G. Separate clot: Absent SECTIONS SUBMITTED: 1. Umbilical cord ( end inked black) 2. Membrane roll 3. Placental disc, and maternal surfaces 4. Placental disc, and maternal surfaces 5. Placental disc, and maternal surfaces AM:donato 02/23/20 TC:2 CPT: 88391
[2020-02-22 13:21] LABS: Bedside Glucose 104 mg/dL (70-110)
[2020-02-22 13:21] LABS: Pathology Specimen OB SEE PATHOLOGY REPORT
[2020-02-22] MEDS: Labetalol 100 MG Tablet PO ×2 (15:30→22:08)
[2020-02-22] MEDS: Acetaminophen 500 MG Tablet 1000 MG PO (19:55)
[2020-02-22] MEDS: Ibuprofen 600 MG Tablet PO (21:01)
[2020-02-23] VITALS (10 sets, daily range): BP systolic 116–169; BP diastolic 56–81; PULSE 58–82; RESP 16–18; TEMP 36.2–36.8; O2SAT 97–98
[2020-02-23] MEDS: Labetalol 100 MG Tablet PO ×2 (05:17→14:15)
[2020-02-23 05:26] LABS: Bedside Glucose 78 mg/dL (70-110)
[2020-02-23 05:28] LABS: Hematocrit 33.1 % (37-47); Hemoglobin 10.7 g/dL (12.0-15.0); Mean Corp Hgb Conc 32.3 g/dL (32-36); Mean Corpuscular Hgb 28.7 pg (27.0-32.0); Mean Corpuscular Volume 88.7 fL (81-99); Mean Platelet Vol. 10.2 fl (6.2-12.0); Platelet Count 229 K/mm3 (150-450); RBC Distribution Width CV 14.3 % (11.6-14.6); RBC Distribution Width SD 46.6 fl (35.1-43.9); Red Blood Count 3.73 M/mm3 (4.2-5.4); White Blood Count 23.8 K/mm3 (4.4-11.0)
--- NOTE | 2020-02-23 08:15 | PCM.PN.BLA ---
Progress Note Patient seen - no complaints. Denies painfulness, she is out of bed ambulating, tolerates PO. Denies heavy lochia. Bottlefeeding. Will return for exam as patient desires to complete infant grooming. STROKE Vital Signs/Narrative: Vital Signs Temp Pulse Resp BP BP Pulse Ox 02/23/20 17:10 60 152/71 H 02/23/20 16:58 60 152/71 H 02/23/20 16:55 58 L 157/74 H 02/23/20 14:15 69 137/65 H 02/23/20 14:13 82 169/81 H 02/23/20 14:00 98.1 F 69 18 137/65 H 98
[2020-02-23] MEDS: Ibuprofen 600 MG Tablet PO (13:43)
--- NOTE | 2020-02-23 17:28 | DCINST_ITS ---
Discharge Diet: No Restrictions Discharge Activity: Return to Normal Activity, May Shower, May Take a Tub Bath May resume sexual activity in: 4-6 weeks Lifting Restrictions: 20-25lb Call your doctor if your incision/area has: Continuous Slow Oozing, Sudden Incre ased Bleeding, Increased Pain/ Swelling, Increased Redness, Foul Smelling Discharge Call your doctor if you observe: Fever of 101 or Higher, Inability to urinate, Inability to have a bowel movement, Using more than one pad per hour, Shortness of breath, Calf discomfort, Uncontrolled pain Additional Instructions: If you experience any of the following, contact your healthcare provider. * Bleeding that soaks a pad every hour for 2 hours * Fever 100.4 or higher * Unrelieved incision or abdominal pain * Swelling, redness, discharge or bleeding from your incision or episiotomy site * Your incision begins to separate * Problems urinating (including inability to urinate or burning while urinating). * Visual changes * Severe headache * Flu-like symptoms * Pain or redness in one of both of your breasts * Pain, warmth, tenderness or swelling in your legs, especially the calf area * Frequent nausea and vomiting * Symptoms of depression or anxiety If you experience any of the following, call 911 or go to the nearest Emergency Room. * Chest pain * Problems breathing * Seizure activity * Partial or complete paralysis of a body part, slurred speech, weakness or drooping of the face, or a sudden inability to walk or hold your balance Allergies/Adverse Reactions: Allergies amoxicillin [From Augmentin] Allergy (Verified 02/20/20 19:48) Swelling clavulanic acid [From Augmentin] Allergy (Verified 02/20/20 19:48) Swelling Penicillins Allergy (Verified 02/20/20 19:48) Swelling Medications to take at Discharge Vits [Prenatabs FA ] 1 tab PO DAILY 12/27/19 Labetalol [Trandate (Beta Jorden)] 100 mg PO TID #90 tab 02/23/20 The following prescriptions were given: Labetalol [Trandate (Beta Jorden)] 100 mg PO TID #90 tab Transmission Status: Pending to [facility] Please Follow Up With: Diane Ortega MD When: 2 -3 weeks Primary Care Physician: Jerome Zacarias Chi, MD [Primary Care Provider] - Test Results: Test results from this visit will be discussed in further detail at your follow- up appointment, if applicable.
--- NOTE | 2020-02-23 17:38 | PCM.PN.OB ---
Patient Problems: Active and Suspected Problems (Last Updated 02/20/20 @ 21:[address] Diane Conway MD) Hypertension affecting (Acute) 37 weeks gestation of (Acute) Gestational diabetes (Acute) Subjective: Continues to do well. Desires discharge home today. Denies headache, vision changes, heavy lochia. Objective: Vital Signs Temp Pulse Resp BP BP Pulse Ox 02/23/20 17:10 60 152/71 H 02/23/20 16:58 60 152/71 H 02/23/20 16:55 58 L 157/74 H 02/23/20 14:15 69 137/65 H 02/23/20 14:13 82 169/81 H 02/23/20 14:00 98.1 F 69 18 137/65 H 98 02/23/20 08:22 61 116/56 L 02/23/20 08:00 98.2 F 61 16 116/56 L 97 - Physical Exam Vitals/I&O's: Vital Signs Temp Pulse Resp BP Pulse Ox 98.1 F 60 18 152/71 H 98 02/23/20 14:00 02/23/20 17:10 02/23/20 14:00 02/23/20 17:10 02/23/20 14:00 Oxygen Delivery Method Room Air Weight: 86.727 kg Body Mass Index (BMI) 34.9 Intake and Output for Last 24 Hours 02/21/20 02/22/20 02/23/20 23:59 23:59 23:59 Intake Total 3880.43 / 3880.43 3045.98 / 3045.98 Output Total 2800 / 2800 3605 / 3605 Balance 1080.43 / 1080.43 -559.02 / -559.02 General: Alert, Oriented x3, Cooperative, No apparent distress HEENT: Atraumatic, Normocephalic Lungs: Clear to auscultation, Normal air movement Cardiovascular: Regular rate, Regular Rhythm, Normal S1, Normal S2 Abdomen: Soft, Non Tender, Non-Distended, - - Fundus firm and nontender Extremities: No edema, No Calf Tenderness Neurological: Neuro grossly intact Psych/Mental Status: Normal Affect, Appropriate, Alert and oriented to time, place, person, mood and affect Laboratory Results 02/23/20 05:13: POC Glucose 78 02/23/20 05:18: WBC 23.8 H, RBC 3.73 L, Hgb 10.7 L, Hct 33.1 L, MCV 88.7, MCH 28.7, MCHC 32.3, RDW Std Deviation 46.6 H, RDW Coeff of Saad 14.3, Plt Count 229, MPV 10.2 Current Medications Acetaminophen (Acetaminophen 500 Mg Tablet) 1,000 mg PO Q8H PRN PRN PRN Reason: Pain Score 1-3 Last Admin: 02/22/20 19:55 Dose: 1,000 mg Documented by: Bisacodyl (Bisacodyl 10 Mg Suppository) 10 mg RECTAL UD PRN PRN Reason: If no BM Dibucaine (Dibucaine 30 Gm Tube) 1 applic TOPICAL TID PRN PRN; Protocol PRN Reason: Discomfort Hydrocortisone (Hydrocortisone 2.5% Crm) 1 applic TOPICAL TID PRN PRN; Protocol PRN Reason: Discomfort Ibuprofen (Ibuprofen 600 Mg Tablet) 600 mg PO Q6H PRN PRN PRN Reason: Pain Score 1-3 Last Admin: 02/23/20 13:43 Dose: 600 mg Documented by: Labetalol HCl (Labetalol 100 Mg Tablet) 100 mg PO TID MADELINE Last Admin: 02/23/20 14:15 Dose: 100 mg Documented by: Methylergonovine Maleate (Methylergonovine 0.2 Mg/Ml Ampul) 0.2 mg IM X1 PRN PRN Reason: Excess bleeding/uterine atony Ondansetron HCl (Ondansetron 4 Mg/2 Ml Vial) 4 mg IV Q4H PRN PRN PRN Reason: Nausea Oxycodone HCl (Oxycodone 5 Mg Tablet) 5 - 10 mg PO Q4H PRN PRN PRN Reason: Pain Score 4-10 Senna/Docusate Sodium (Senna/Docusate Sodium 1 Tablet) 1 - 2 tablet PO DAILY PRN PRN PRN Reason: Constipation Simethicone (Simethicone 80 Mg Tablet) 80 mg PO PCHS PRN PRN Reason: Indigestion/Stomach pain Sodium Chloride (0.9% Saline Lock 10 Ml Syringe) 5 - 15 ml IV UD PRN PRN Reason: SALINE FLUSH Zolpidem Tartrate (Zolpidem Tartrate 5 Mg Tablet) 5 mg PO QHS PRN PRN PRN Reason: Insomnia Medical Necessity - Tobacco Use Smoking Status: Light Smoker (<10/day) Assessment/Plan All Active Problems (Last Updated 02/20/20 @ 21:[address] Diane Conway MD) Hypertension affecting (Acute) 37 weeks gestation of (Acute) Gestational diabetes (Acute) This is a 34 year-old, G [1], P [1 PPD#1 s/p VAVD hx uncontrolled cHTN, GDM -Will d/c home this evening -Continue new dose Labetalol tid -f/u in office in 2-3 weeks for BP check
== END 2020-02-23 18:20 | disposition home or self-care (01) | DRG 560 ==
PROVIDERS: Obstetrics & Gynecology; Admitting Provider Obstetrics & Gynecology; PCP Family Medicine Geriatric Medicine; Visit Provider Obstetrics & Gynecology
DX: O24.425 Gestational diabetes mellitus in childbirth, controlled by oral hypoglycemic drugs (principal); O10.92 Unspecified pre-existing hypertension complicating childbirth; O36.5930 Maternal care for other known or suspected poor fetal growth, third trimester, not applicable or unspecified; O99.334 Smoking (tobacco) complicating childbirth; F17.200 Nicotine dependence, unspecified, uncomplicated; O76 Abnormality in fetal heart rate and rhythm complicating labor and delivery; O69.1XX0 Labor and delivery complicated by cord around neck, with compression, not applicable or unspecified; O77.0 Labor and delivery complicated by meconium in amniotic fluid; Z3A.37 37 weeks gestation of pregnancy; Z37.0 Single live birth
CPT/HCPCS: 59025; 59050; 76815; 80053; 82565; 82570; 82962; 84156; 84450; 84460; 84550; 85025; 85027; 85610; 85730; 86850; 86900; 86901; 88307; 99218; J7120; A4216; G0378; J2405

== ENCOUNTER → 2020-05-31 11:49 | Outpatient (CLI) | payer MEDICAID, SELFPAY ==
[2020-02-20 19:47] VITALS: BMI 34.9
== END ==
PROVIDERS: PCP Family Medicine Geriatric Medicine; Visit Provider Obstetrics & Gynecology
DX: N39.0 Urinary tract infection, site not specified (principal)
CPT/HCPCS: 87086; 87088

== ENCOUNTER 2020-06-06 05:50 | Day surgery (SDC) | payer MEDICAID, SELFPAY ==
[2020-02-20 19:47] VITALS: BMI 34.9
[2020-05-31 10:30] LABS: Hematocrit 44.3 % (37-47); Hemoglobin 14.4 g/dL (12.0-15.0); Mean Corp Hgb Conc 32.5 g/dL (32-36); Mean Corpuscular Hgb 27.7 pg (27.0-32.0); Mean Corpuscular Volume 85.4 fL (81-99); Mean Platelet Vol. 9.4 fl (6.2-12.0); Platelet Count 325 K/mm3 (150-450); RBC Distribution Width CV 14.6 % (11.6-14.6); Red Blood Count 5.19 M/mm3 (4.2-5.4); White Blood Count 10.9 K/mm3 (4.4-11.0)
[2020-05-31 10:39] LABS: Partial Thromboplast Time 30.7 Seconds (24.1-36.2)
[2020-06-06] VITALS (10 sets, daily range): BP systolic 110–136; BP diastolic 58–88; PULSE 55–102; RESP 16–18; TEMP 36.4–36.9; O2SAT 91–100; BMI 34.2
[2020-06-06 06:19] LABS: Internal QC Validated? YES +Cl - CLEAR BKGD; Pregnancy, Urine Negative Negative
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
[2020-06-06] MEDS: Lactated Ringers 1,000 ML 100 ML IV ×2 (06:37→09:29)
--- NOTE | 2020-06-06 07:30 | FALS_PTH ---
PATIENT: BROOKLYNN YOU LOC: [facility] [place] U#:[id number] AGE/SX: 35/F ROOM: RE06/06/[address]: Dr. Edwar Zamora MD : 1985 BED: DIS: 06/06/2020 SPEC #: [id number] RECD: 06/06/20 11:03 STATUS: MARCK SENG #: [id number] IGNACIO: 06/06/20 07:[address]: Edwar Zamora DEPT: SURGICAL PATHOLOGY RECD BY: Sherri Carpio ENTERED: 06/06/20 12:20 SP TYPE: FALL TUBES OTHR DR: Dr. Jerome Zacarias MD Tissues: Fallopian tube Procedures: Surgery Specimen Level II Surgery Specimen Level IV HEADER OPERATION: Laparoscopic salpingectomy, Mid urethral sling PRE-OP DIAGNOSIS: Sterilization, stress incontinence TISSUE SUBMITTED: Bilateral fallopian tubes MICROSCOPIC DIAGNOSIS Right and left fallopian tubes, bilateral salpingectomies: Complete cross-sections of fallopian tubes. Benign paratubal cysts. AM:donato 06/07/2020 MICROSCOPIC DESCRIPTION Slides are reviewed. GROSS DESCRIPTION Received in fixative is one container labeled with the patient's name and designated bilateral fallopian tubes. The specimen consists of bilateral fallopian tubes including fimbrial ends measuring 7 cm in length and 0.5 cm in diameter and 7 cm in length and 0.5 cm in diameter. One of the fallopian tubes show three paratubal cysts, the largest measuring 1.1 cm in greatest dimension. The fallopian tubes are not identified as right or left. Sections reveal unremarkable cut surfaces. Arabic Teacher sections are submitted in two cassettes with each cassette containing one fallopian tube. Cassette 2 also contains the paratubal cyst. / SJ:donato 06/06/20 TC:5 CPT: 25718, 51122
[2020-06-06] MEDS: Lidocaine 1% /Epi 1:100 (20ml) 20 ML Vial (08:45)
--- NOTE | 2020-06-06 09:13 | PCM.OPRPT ---
Report of Operation Date of Procedure: 06/06/20 Pre-Operative Diagnosis: Desires permanent sterilization, stress urinary incontinence Post-Operative Diagnosis: Desires permanent sterilization, stress urinary incontinence Surgery/Procedure Performed:: Laparoscopic bilateral salpingectomy, transvaginal tape, cystoscopy Description of Surgical Findings:: Surgeon: Edwar Zamora MD Anesthesia: General EBL: 50 cc Urine output: 200 cc Fluids: 800 cc Complications: None Specimen: Bilateral fallopian tubes Findings: Normal uterus, tubes, and ovaries. Post procedure cystoscopy with no signs of pathology, no signs of bladder perforation or mesh noted. Consent: Patient with desire permanent sterilization and stress urinary incontinence in need of diagnostic laparoscopy bilateral salpingectomy transvaginal tape and cystoscopy. Patient understands the risk of the procedure include but are not limited to visceral or vascular injury, prolonged hospitalization, blood loss need for transfusion, reoperation. Also discussed mesh complications and possible need for intermittent or home Horta catheter. Patient states understanding wish to proceed. All questions were answered consent was signed. Procedure: Patient was brought back to the OR where general anesthesia found be adequate. Gentamicin and clindamycin were given for infection prophylaxis. Patient was prepared and draped in a dorsal lithotomy position with yellowfin stirrups. Weighted speculum is placed the posterior aspect of vagina and cervical dilators were used to dilate the cervix. Uterine manipulator was placed. Varies needle was inserted at the umbilicus, water safety test was passed, abdomen was insufflated. Laparoscope was inserted and above findings were noted. Bilateral 5 mm and 8 mm trochars were inserted under direct visualization. Using atraumatic grasper the left fallopian tube was identified to the fimbriae and the mesosalpinx was cut and cauterized left lobe tube was removed and sent to pathology. In a similar fashion the right fallopian tube was identified to the fimbria and the mesosalpinx was cut and cauterized fallopian tube was removed from the abdominal cavity and sent to pathology. Good hemostasis was noted. Abdomen was deflated. Laparoscopic incisions were closed in a subcutaneous fashion. Uterine manipulator was removed. Lidocaine with epi was injected in the periurethral/vaginal mucosa. Infra urethral vaginal mucosal incision was made. Periurethral fascia was dissected bilaterally. Right mesh trocar and guided posterior portion of the pubic bone. Similar fashion the left trocar was guided along the posterior portion of the pubic bone lateral to the urethra and bladder. During both trocar placements the bladder was deviated with a Horta catheter stylette. Cystoscopy was performed and above findings were noted. Bilateral mesh was adjusted in the standard fashion. Suprapubic mesh was cut at the skin line, incisions closed with skin glue. Vaginal mucosa was closed in continuous running locked fashion. Good hemostasis was noted. All counts correct x2. Patient tolerated procedure well was brought to recovery in stable condition. senior payroll manager: Consuelo Woodard
--- NOTE | 2020-06-06 09:21 | PCM.DC.D&C ---
Discharge Diet: No Restrictions Discharge Activity: Return to Normal Activity, May Drive, May not drive while taking narcotic pain medications., May Shower, - - No tub baths for 2 weeks May resume sexual activity in: 4-6 weeks Lifting Restrictions: no lifting over 25 pounds for 2 weeks Call your doctor if your incision/area has: Continuous Slow Oozing, Foul Smelling Discharge Call your doctor if you observe: Fever of 101 or Higher, Shortness of breath, Chest pain Allergies/Adverse Reactions: Allergies amoxicillin [From Augmentin] Allergy (Verified 06/06/20 06:20) Swelling clavulanic acid [From Augmentin] Allergy (Verified 06/06/20 06:20) Swelling Penicillins Allergy (Verified 06/06/20 06:20) Swelling Medications to take at Discharge Oxycodone [Oxyir] 5 mg PO Q6H PRN PRN 6 Days #24 tablet 06/06/20 The following prescriptions were given: Oxycodone [Oxyir] 5 mg PO Q6H PRN PRN 6 Days #24 tablet PRN Reason: Pain Score 6-10 Transmission Status: Sent to [facility] [place] [address] Primary Care Physician: Jerome Zacarias Chi, MD [Primary Care Provider] - Test Results: Test results from this visit will be discussed in further detail at your follow-up appointment, if applicable. Please Follow Up With: Edwar Zamora MD When: 2 weeks
[2020-06-06] MEDS: oxyCODONE 5 MG Tablet PO (12:07)
--- NOTE | 2020-06-06 12:09 | SUR.PHASEII ---
unable to void. bladder scanned for 50ml
== END 2020-06-06 16:31 | disposition home or self-care (01) ==
LOC: SDC 05:50 → AC 05:51
PROVIDERS: Anesthesiology; PCP Family Medicine Geriatric Medicine; Referring Provider Obstetrics & Gynecology; Visit Provider Obstetrics & Gynecology
PROC: (CPT 58661; principal; 2020-06-06 07:15)
DX: N39.3 Stress incontinence (female) (male) (principal); N83.8 Other noninflammatory disorders of ovary, fallopian tube and broad ligament; Z30.2 Encounter for sterilization; F17.210 Nicotine dependence, cigarettes, uncomplicated; Z20.822 Contact with and (suspected) exposure to COVID-19
CPT/HCPCS: 00860; 52000; 57288; 58661; 36415; 81025; 85027; 85610; 85730; 86850; 86900; 86901; 87426; 88302; 88305; C9803; J7120; J2405

== ENCOUNTER → 2020-12-09 | Outpatient (CLI) | payer MEDICAID, SELFPAY ==
[2020-12-09 13:41] LABS: Hematocrit 46.1 % (37-47); Hemoglobin 15.2 g/dL (12.0-15.0); Mean Corpuscular Hgb 28.3 pg (27.0-32.0); Mean Corpuscular Volume 85.7 fL (81-99); Mean Platelet Vol. 9.9 fl (6.2-12.0); Platelet Count 323 K/mm3 (150-450); RBC Distribution Width CV 13.6 % (11.6-14.6); RBC Distribution Width SD 41.8 fl (35.1-43.9); Red Blood Count 5.38 M/mm3 (4.2-5.4); White Blood Count 10.2 K/mm3 (4.4-11.0)
[2020-12-09 14:17] LABS: Estradiol 160.1 pg/mL; Follicle Stimulating Hormone 2.7 mIU/mL; Luteinizing Hormone 3.9 mIU/mL; Prolactin 3.3 ng/mL; T4 Free Direct 1.06 ng/dL (0.76-1.46); Thyroid Stim Hormone (TSH) 1.47 uIU/mL (0.358-3.74)
[2020-12-15 08:39] LABS: Testosterone Free 5.3 pg/mL (0.0-4.2)
== END | disposition home or self-care (01) ==
PROVIDERS: PCP Family Medicine Geriatric Medicine; Visit Provider Obstetrics & Gynecology
DX: N93.9 Abnormal uterine and vaginal bleeding, unspecified (principal)
CPT/HCPCS: 36415; 82627; 82670; 83001; 83002; 84146; 84402; 84439; 84443; 85027; 82626

== ENCOUNTER → 2021-01-17 | Outpatient (CLI) | payer MEDICAID, SELFPAY ==
[2021-01-21 00:07] LABS: Chlamydia By Nucleic Acid AMP Negative (Negative)
[2021-01-21 11:21] LABS: Gonococcus By Nucleic Acid AMP Negative (Negative)
== END | disposition home or self-care (01) ==
LOC: LABSPEC 11:04
PROVIDERS: PCP Family Medicine Geriatric Medicine; Visit Provider Obstetrics & Gynecology
DX: Z11.3 Encounter for screening for infections with a predominantly sexual mode of transmission (principal)
CPT/HCPCS: 87491; 87591

== ENCOUNTER 2021-04-07 05:09 | Day surgery (SDC) | payer MEDICAID, SELFPAY ==
[2021-04-07] VITALS (12 sets, daily range): BP systolic 129–149; BP diastolic 63–118; PULSE 62–88; RESP 16–22; TEMP 36.1–36.6; O2SAT 92–100; BMI 35.4
[2021-04-07] MEDS: Lactated Ringers 1,000 ML 30 ML IV (06:35)
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
--- NOTE | 2021-04-07 07:30 | EMB_PTH ---
PATIENT: BROOKLYNN YOU LOC: [facility] [place] U#:[id number] AGE/SX: 36/F ROOM: RE04/07/[address]: Dr. Edwar Zamora MD : 1985 BED: DIS: 04/07/2021 SPEC #: [id number] RECD: 04/07/21 10:20 STATUS: MARCK RECaitlin #: [id number] IGNACIO: 04/07/21 07:[address]: Edwar Zamora DEPT: SURGICAL PATHOLOGY RECD BY: Sherri Carpio ENTERED: 04/07/21 10:53 SP TYPE: ENDOM BX/C NICOLÁS DR: Dr. Jerome Zacarias MD Tissues: Endometrium, NOS Procedures: Surgery Specimen Level IV HEADER OPERATION: Hysteroscopy, D & C Sariah PRE-OP DIAGNOSIS: Abnormal uterine bleeding TISSUE SUBMITTED: Endometrial curettings MICROSCOPIC DIAGNOSIS Endometrium, curettings: Transition endometrium with stromal and focal glandular breakdown. Mild chronic endometritis. Rare strips of benign superficial endocervix. AM:donato 04/08/2021 MICROSCOPIC DESCRIPTION Slides are reviewed. GROSS DESCRIPTION Received in fixative is one container labeled with the patient's name and designated endometrial curettings. The specimen consists of multiple fragments of pink hemorrhagic soft tissue that in aggregate measure 3 x 2.5 x 0.2 cm. The specimen is totally submitted in one cassette. / SJ:donato 04/07/2021 TC:3 CPT: 09511
--- NOTE | 2021-04-07 08:02 | PCM.DC ---
Discharge Instructions Diet Discharge Diet: No restrictions Activity Discharge Activity: Return to Normal Activity, May Drive and May Shower May resume sexual activity in: 4-6 weeks Weight Bearing Status: Weight bearing as tolerated Dressing / Incision Call your doctor if your incision/area has: Continuous Slow Oozing and Foul Smelling Discharge Call your doctor if you observe: Fever of 101 or Higher, Shortness of breath and Chest pain Follow Up Care Please Follow Up With: Edwar Zamora MD When: 2 weeks postoperatively Test Results: Test results from this visit will be discussed in further detail at your follow-up appointment, if applicable. Discharge Plan Admission Attending Provider: Edwar Zamora Primary Care Provider: Jerome Zacarias Chi Discharge Orders/Prescriptions Prescriptions: No Action norethindrone (contraceptive) [Maura] 0.35 mg Tablet 0.35 mg PO DAILY RF: 0 Disposition Discharge Orders: Discharge Patient (Routine); Ordered 04/07/21 Ordered By: Dr. Edwar Zamora
--- NOTE | 2021-04-07 08:03 | PCM.OPRPT ---
Report of Operation Date of Procedure: 04/07/21 Pre-Operative Diagnosis: Abnormal uterine bleeding Post-Operative Diagnosis: Abnormal uterine bleeding Surgery/Procedure Performed:: Hysteroscopy, dilation and curettage, endometrial ablation via Sariah Description of Surgical Findings:: Surgeon: Edwar Zamora MD Anesthesia: MAC EBL: 5 cc Urine output: 25 cc IV fluids: 400 cc Complications: None Specimen: Endometrial curettings Findings: Hysteroscopy with no pathology. Sariah ablation device set to 5.5 cm length. Post procedure hysteroscopy with no new pathology Consent: Patient with abnormal uterine bleeding in need of hysteroscopy, dilation curettage, endometrial ablation via Sariah. Patient understands the risk of the procedure include but are not limited to visceral or vascular injury, prolonged hospitalization, blood loss and need for transfusion, reoperation. Patient stated understanding and wished to proceed. All questions were answered and consent was signed. Procedure: Patient was brought back to the OR where MAC anesthesia was found to be adequate. Patient was prepared and draped in a dorsal lithotomy position with yellowfin stirrups. A weighted speculum was placed in the posterior aspect of the vagina and cervical dilators were used to dilate the cervix. Hysteroscope was inserted and above findings were noted. Sharp endometrial curettage was performed in all quadrants and sent to pathology. Sariah device was opened and set to 5.5 cm for cavity length. Sariah device was inserted under direct visualization. Safety test were passed x2. 120 seconds of endometrial ablation proceeded. Sariah device was removed under direct visualization. Post procedure hysteroscopy with above findings. Good hemostasis was noted. All counts were correct x2. Patient tolerated the procedure well and was brought to recovery in a stable condition.
[2021-04-07] MEDS: Ketorolac 30 MG/ML Syringe IV (08:39)
[2021-04-07] MEDS: oxyCODONE 5 MG Tablet PO (09:10)
== END 2021-04-07 23:59 | disposition home or self-care (01) ==
LOC: SDC 05:10 → AC 05:11
PROVIDERS: PCP Family Medicine Geriatric Medicine; Referring Provider Obstetrics & Gynecology; Visit Provider Obstetrics & Gynecology
PROC: 0U5B8ZZ Destruction of Endometrium, Via Natural or Artificial Opening Endoscopic (ICD-10-PCS; CPT 58558; principal; 2021-04-07 07:15)
DX: N71.1 Chronic inflammatory disease of uterus (principal); N93.9 Abnormal uterine and vaginal bleeding, unspecified; F17.210 Nicotine dependence, cigarettes, uncomplicated
CPT/HCPCS: 58563; 00952; 87426; 88305; C9803; J7120; J2405

== ENCOUNTER → 2022-01-12 | Outpatient (CLI) | payer MEDICAID, SELFPAY ==
[2022-01-12 12:28] LABS: Absolute Lymphocyte Count 3.88 X10^3/uL (0.83-4.51); Absolute Neutrophil Count 5.3 X10^3/uL (2.0-7.7); Basophil# 0.07 X10^3/uL; Basophil% 0.7 % (0-1); Eosinophil# 0.26 X10^3/uL; Eosinophils% 2.5 % (0-5); Hemoglobin 15.3 g/dL (12.0-15.0); Lymphocyte # 3.88 X10^3/ul (0.83-4.51); Lymphocyte % 37.7 % (19-41); Mean Corp Hgb Conc 33.3 g/dL (32-36); Mean Corpuscular Hgb 28.6 pg (27.0-32.0); Monocyte# 0.72 X10^3/uL; NRBC Flagged by Analyzer 0 % (0-5); Neutrophil # 5.33 X10^3/uL (2.7-7.7); Neutrophil % 51.7 % (47-70); Platelet Count 287 K/mm3 (150-450); RBC Distribution Width CV 13.3 % (11.6-14.6); RBC Distribution Width SD 42.3 fl (35.1-43.9); Red Blood Count 5.35 M/mm3 (4.2-5.4); White Blood Count 10.3 K/mm3 (4.4-11.0)
[2022-01-12 13:07] LABS: AST(SGOT) 19 U/L (15-37); Alanine Aminotransfer ALT/SGPT 55 U/L (13-56); Albumin, Serum 3.9 g/dL (3.2-5.0); Alkaline Phosphatase 86 U/L (45-117); Anion Gap 3 (5-15); BUN 13 mg/dL (7-18); BUN/Creat Ratio 14.9 RATIO (10-20); Calcium,Total 9.3 mg/dL (8.5-10.1); Chloride 109 mmol/L (98-107); Creatinine, Serum 0.87 mg/dL (0.55-1.02); EST Glomerular Filtration Rate 79 mL/min (>60); Est Glom Filt Rate - Afr Amer 95 mL/min (>60); Globulin 3.9 g/dL (2.2-4.2); Glucose 97 mg/dL (74-106); Potassium 4.2 mmol/L (3.5-5.1); Protein, Total 7.8 g/dL (6.4-8.2); Sodium Level 139 mmol/L (136-145); Thyroid Stim Hormone (TSH) 1.71 uIU/mL (0.358-3.74)
== END | disposition home or self-care (01) ==
LOC: POLAB3 08:52
PROVIDERS: PCP Family Medicine Geriatric Medicine; Visit Provider Family Medicine Geriatric Medicine
DX: R53.83 Other fatigue (principal)
CPT/HCPCS: 36415; 80053; 84443; 85025

== ENCOUNTER → 2022-08-05 | Outpatient (CLI) | payer MEDICAID, SELFPAY ==
[2022-08-05 12:13] LABS: Absolute Neutrophil Count 4.2 X10^3/uL (2.0-7.7); Basophil# 0.08 X10^3/uL; Basophil% 0.9 % (0-1); Eosinophil# 0.16 X10^3/uL; Eosinophils% 1.8 % (0-5); Hematocrit 45.4 % (37-47); Hemoglobin 14.8 g/dL (12.0-15.0); Mean Corp Hgb Conc 32.6 g/dL (32-36); Mean Corpuscular Hgb 28.6 pg (27.0-32.0); Mean Corpuscular Volume 87.6 fL (81-99); Mean Platelet Vol. 9.6 fl (6.2-12.0); Monocyte# 0.65 X10^3/uL; Monocyte% 7.4 % (0-10); NRBC Flagged by Analyzer 0 % (0-5); Neutrophil # 4.17 X10^3/uL (2.7-7.7); Neutrophil % 47.4 % (47-70); Platelet Count 295 K/mm3 (150-450); RBC Distribution Width CV 13.5 % (11.6-14.6); RBC Distribution Width SD 43.6 fl (35.1-43.9); Red Blood Count 5.18 M/mm3 (4.2-5.4); White Blood Count 8.8 K/mm3 (4.4-11.0)
[2022-08-05 12:24] LABS: hCG Titer Quant., Serum < 1 mIU/mL (1-3)
[2022-08-05 15:18] LABS: Estradiol 93.2 pg/mL; Follicle Stimulating Hormone 6.1 mIU/mL; Luteinizing Hormone 9.7 mIU/mL; Prolactin 4.3 ng/mL; T4 Free Direct 1.22 ng/dL (0.76-1.46); Thyroid Stim Hormone (TSH) 1.18 uIU/mL (0.358-3.74)
== END | disposition home or self-care (01) ==
LOC: WOBLAB 11:19
PROVIDERS: PCP Family Medicine Geriatric Medicine; Visit Provider Nurse Practitioner Women's Health
DX: N93.9 Abnormal uterine and vaginal bleeding, unspecified (principal)
CPT/HCPCS: 36415; 82670; 83001; 83002; 84146; 84439; 84443; 84702; 85025

== ENCOUNTER 2022-11-05 07:22 | Day surgery (SDC) | payer MEDICAID, SELFPAY ==
--- NOTE | 2022-11-03 13:43 | EKG12_ITS ---
Test Reason : PRE OP Blood Pressure : / mmHG Vent. Rate : 062 BPM Atrial Rate : 062 BPM P-R Int : 132 ms QRS Dur : 088 ms QT Int : 418 ms P-R-T Axes : 059 085 059 degrees QTc Int : 424 ms Normal sinus rhythm Normal ECG Confirmed by CRYSTAL MICHEL, ADRIENNE ([id number]), commissioning editor YOSHI HOFFMANN ([id number]) on 11/26/2022 2:30:12 PM Referred By: Edwar Zamora Confirmed By:MAXIMILIAN ROJAS MD
[2022-11-03 14:12] LABS: Hematocrit 46.7 % (37-47); Hemoglobin 14.9 g/dL (12.0-15.0); Mean Corp Hgb Conc 31.9 g/dL (32-36); Mean Corpuscular Hgb 28.2 pg (27.0-32.0); Mean Corpuscular Volume 88.4 fL (81-99); Mean Platelet Vol. 9.4 fl (6.2-12.0); Platelet Count 298 K/mm3 (150-450); RBC Distribution Width CV 13.6 % (11.6-14.6); RBC Distribution Width SD 43.9 fl (35.1-43.9); Red Blood Count 5.28 M/mm3 (4.2-5.4); White Blood Count 10.4 K/mm3 (4.4-11.0)
[2022-11-05] VITALS (14 sets, daily range): BP systolic 134–161; BP diastolic 66–100; PULSE 56–74; RESP 16–18; TEMP 36–37.5; O2SAT 93–99; BMI 35.8
[2022-11-05] MEDS: Scopolamine 1mg/72hr Patch 1 PATCH TD (08:01)
--- NOTE | 2022-11-05 08:03 | PCM.HP.BLA ---
History and Physical Date of Admission: 11/05/22 Chief complaint: Abnormal uterine bleeding History present illness: 37-year-old scheduled for robotic assisted total laparoscopic hysterectomy bilateral salpingectomy and cystoscopy. No medical changes since last seen. All questions answered and consent signed. Obstetric history: G1 with a history of vaginal delivery Past medical history: None Medications: None Allergies: Amoxicillin, penicillin, Augmentin Past surgical history: Tubal ligation, ablation, bladder sling Social history: 1 pack/day smoker, denies alcohol or drug use Family history: Denies history DVT or PE Review of systems: Besides above pertinent positives a 4 view of systems was performed and found to be negative Physical exam: Vitals: Pending General: Normal-appearing no acute distress HEENT: Normocephalic/atraumatic no cervical lymphadenopathy Cardiac/respiratory: No use of accessory muscles, nonlabored breathing Abdomen: Soft, nontender, nondistended Extremities: No peripheral edema normal peripheral pulses Psych: Normal affect, demeanor nonpressured speech Assessment plan: 37-year-old scheduled for robotic assisted total laparoscopic hysterectomy bilateral salpingectomy and cystoscopy. Educated patient on risk benefits alternatives of the procedure include but are not limited to visceral or vascular injury, prolonged hospitalization, blood loss and need for transfusion, reoperation. Patient state understanding wish to proceed all questions answered and consent signed.
[2022-11-05] MEDS: Lactated Ringers 1,000 ML 40 ML IV ×3 (08:06→12:20)
[2022-11-05] MEDS: Clindamycin 900 MG/50 ML BAG 75 MG IV (08:07)
[2022-11-05] MEDS: Magnesium 1 GM over 15 mins IV (08:07)
[2022-11-05] MEDS: Gabapentin 600 MG Tablet PO (08:08)
[2022-11-05] MEDS: Acetaminophen 500 MG Tablet 1000 MG PO (08:08)
[2022-11-05] MEDS: Insulin Lispro 100 UNIT/ML INSULN.PEN SC (08:32)
[2022-11-05 08:40] LABS: Bedside Glucose 187 mg/dL (74-106)
--- NOTE | 2022-11-05 09:20 | HYST_PTH ---
PATIENT: BR[place]NN [place] [facility] [id number] AGE/SX: 37/F ROOM: RE11/05/[address]: Dr. Edwar Zamora MD : 1985 BED: DIS: 11/05/2022 SPEC #: [id number] RECD: 11/05/22 11:46 STATUS: MARCK E[facility] #: [id number] IGNACIO: 11/05/22 09:[address]: Edwar Zamora DEPT: SURGICAL PATHOLOGY RECD BY: Sherri Carpio ENTERED: 11/05/22 13:14 SP TYPE: HYSTERECT OTHR DR: Dr. Jerome Zacarias MD Tissues: Uterus, NOS Procedures: Surgery Specimen Level V HEADER OPERATION: Lap robotic hysterectomy, cystoscopy PRE-OP DIAGNOSIS: Abnormal uterine bleeding TISSUE SUBMITTED: Cervix and uterus MICROSCOPIC DIAGNOSIS Cervix and uterus, hysterectomy: Cervix - chronic inflammation and squamous metaplasia. Endometrium - focal area of secretory endometrium. See comment. Myometrium - a minute intramural leiomyoma (0.1 cm in greatest dimension). SJ:rg 11/06/2022 COMMENT Most of the endometrium is denuded. Please make reference to previous specimen ([id number]) endometrium, curettings with diagnosis of transition endometrium with stromal and focal glandular breakdown and mild chronic endometritis. MICROSCOPIC DESCRIPTION Slides are reviewed. GROSS DESCRIPTION Received in fixative is one container labeled with the patient's name and designated cervix and uterus. The specimen consists of a hysterectomy specimen consisting of uterus with cervix weighing 61 gm and measuring 8.0 x 6.0 3.5 cm. The serosal surface is nicholas, glistening. The ectocervical mucosa is unremarkable. The external os is circular in contour. The endocervical canal measures 3.0 cm in length and the endocervical mucosa is nicholas, glistening and unremarkable. The triangular endometrial cavity measures 4.5 cm in length and up to 2.0 cm in width. The endometrium is nicholas, glistening without any mass lesion and measures 0.1 cm in thickness. Sections of the uterine wall do not reveal any mass lesion and measures up to 1.6 cm in thickness. Home [employer]ist sections are submitted in six cassettes as follows: 1 - anterior cervix, 2 - posterior cervix, 3 & 4 - anterior uterine wall, 5 & 6 - posterior uterine wall. / ALANNA:donato 11/05/2022 TC:1 CPT: 07867
[2022-11-05] MEDS: Lubricating Jelly 60 GM Tube 30 GM (09:51)
--- NOTE | 2022-11-05 11:14 | DCINST_ITS ---
Discharge Instructions Diet Discharge Diet: No restrictions Activity Discharge Activity: Return to Normal Activity, May Shower and - (No tub baths for 2 weeks) May resume sexual activity in: 6-8 weeks Lifting Restrictions: No lifting over 25 pounds for 2 to 3 weeks Dressing / Incision Call your doctor if your incision/area has: Continuous Slow Oozing and Foul Smelling Discharge Call your doctor if you observe: Fever of 101 or Higher, Shortness of breath and Chest pain Follow Up Care Please Follow Up With: Edwar Zamora MD When: 2 weeks postoperative Test Results: Test results from this visit will be discussed in further detail at your follow- up appointment, if applicable. Discharge Plan Admission Attending Provider: Edwar Zamora Primary Care Provider: Jerome Zacarias Chi Discharge Orders/Prescriptions Referrals / Follow Up: Jerome Zacarias Chi, MD [Primary Care Provider] - Disposition Discharge Orders: Discharge Patient (Routine); Ordered 11/05/22 Ordered By: Dr. Edwar Zamora
--- NOTE | 2022-11-05 11:16 | OP.PCM_ITS ---
Report of Operation Date of Procedure: 11/05/22 Pre-Operative Diagnosis: Abnormal uterine bleeding Post-Operative Diagnosis: Abnormal uterine bleeding Surgery/Procedure Performed:: Robotic assisted total laparoscopic hysterectomy, cystoscopy Description of Surgical Findings:: Surgeon: Edwar Zamora MD Anesthesia: General EBL: 50 cc Urine output: 100 cc IV fluids: 700 cc Complications: None Specimen: Cervix, uterus Findings: Status post tubal ligation. Mild amount of Colon-uterine adhesions. Posterior slightly left lateral uterine manipulator perforation, overall hemostatic. Otherwise normal ovaries, cervix, uterus. Post procedure cystoscopy with bilateral ureteral jets noted and no pathology noted. Consent: Patient with abnormal uterine bleeding elects for robotic assisted total laparoscopic hysterectomy and cystoscopy. Patient understands risk of the procedure include but are not limited to visceral vascular injury, prolonged hospitalization, blood loss need for transfusion, reoperation. Patient state understanding wish to proceed. All questions were answered and consent was signed. Procedure: Patient was brought back to the OR where general anesthesia was found to be adequate. Clindamycin and gentamicin were given for infection prophylaxis. Patient was prepared and draped in a dorsolithotomy position with yellowfin stirrups. A weighted speculum is placed in the posterior aspect of the vagina and cervical dilators were used to dilate cervix. Uterine manipulator was placed. Varies needle was inserted at the umbilicus and water safety test was passed, abdomen was insufflated. 8 mm robotic trocar was inserted just above the umbilicus at the midline under direct visualization. Laparoscope was inserted and above findings were noted. Bilateral lower quadrant 8 mm robotic trocars were inserted under direct visualization. 8 mm air seal trocar was placed in the left upper quadrant under direct visualization. Above findings were noted uterine perforation found to be hemostatic in the posterior portion of the uterus, uterine manipulator was removed and repeat placement of the uterine manipulator at the appropriate location of the midline fundus was performed. Laparoscope and palpation noted that manipulator was in appropriate location and hemostasis was noted at site of perforation, perforation at site above colpotomy. Robot was docked. Using a vessel sealer and monopolar scissors: Uterine adhesions were dissected, good hemostasis was noted. Bilateral ureters were visualized and noted to be far out of the operative field. Using a vessel sealer and monopolar scissors the left round ligament was identified cut and cauterized, anterior and posterior portions of broad ligament were dissected, bladder flap was developed. Left utero-ovarian ligament was cut and cauterized and lateralized. Left uterine vessels were skeletonized cut and cauterized lateralized beyond the level of colpotomy cup. Right round ligament was identified cut and cauterized, anterior and posterior portions of the broad ligament were dissected. Bladder flap was fully developed beyond the level of the colpotomy cup. Right uterine vessels were skeletonized cut and cauterized, lateralized beyond the level of colpotomy cup. Circumferential colpotomy was made. Uterus and cervix were removed from the abdominal cavity, and sent to pathology. good hemostasis was noted. Colpotomy was closed with V-Loc suture in a continuous running fashion. Good hemostasis was noted. Abdominal insufflation pressure dropped to 5 mmHg and good hemostasis was noted. Cystoscopy was performed and above findings were noted bilateral ureteral jets and no pathology noted. Colpotomy cup was reinspected and good hemostasis was noted. Trocars were removed under direct visualization and good hemostasis was noted. Trocar sites were closed in a subcutaneous fashion and skin glue was placed over the incisions. Good hemostasis was noted. All counts were correct x2. Patient tolerated procedure well and was brought to recovery in a stable condition. studio set up worker: Sina Vera
[2022-11-05 12:23] LABS: Bedside Glucose 135 mg/dL (74-106)
[2022-11-05] MEDS: Ketorolac 30 MG/ML Syringe IV (13:02)
== END 2022-11-05 16:25 | disposition home or self-care (01) ==
LOC: SDC 07:23 → AC 07:24
PROVIDERS: Anesthesiology; PCP Family Medicine Geriatric Medicine; Referring Provider Obstetrics & Gynecology; Visit Provider Obstetrics & Gynecology
PROC: 0UT90ZZ Resection of Uterus, Open Approach (ICD-10-PCS; CPT 58570; principal; 2022-11-05 09:00)
DX: N93.9 Abnormal uterine and vaginal bleeding, unspecified (principal); D25.1 Intramural leiomyoma of uterus; N87.9 Dysplasia of cervix uteri, unspecified; F17.200 Nicotine dependence, unspecified, uncomplicated
CPT/HCPCS: 58570; S2900; 00840; 36415; 82962; 83735; 85027; 88307; 93005; J7120; J2405; J3475

== ENCOUNTER → 2023-01-15 | Outpatient (CLI) | payer MEDICAID, SELFPAY ==
[2023-01-15 10:40] LABS: Absolute Lymphocyte Count 3.82 X10^3/uL (0.83-4.51); Absolute Neutrophil Count 5.7 X10^3/uL (2.0-7.7); Basophil# 0.08 X10^3/uL; Basophil% 0.8 % (0-1); Eosinophil# 0.19 X10^3/uL; Eosinophils% 1.8 % (0-5); Hematocrit 47.5 % (37-47); Hemoglobin 15.4 g/dL (12.0-15.0); Lymphocyte # 3.82 X10^3/ul (0.83-4.51); Lymphocyte % 36.6 % (19-41); Mean Corp Hgb Conc 32.4 g/dL (32-36); Mean Corpuscular Hgb 28.4 pg (27.0-32.0); Mean Corpuscular Volume 87.5 fL (81-99); Mean Platelet Vol. 9.7 fl (6.2-12.0); Monocyte# 0.57 X10^3/uL; Monocyte% 5.5 % (0-10); NRBC Flagged by Analyzer 0 % (0-5); Neutrophil # 5.72 X10^3/uL (2.7-7.7); Neutrophil % 54.8 % (47-70); Platelet Count 301 K/mm3 (150-450); RBC Distribution Width CV 13.7 % (11.6-14.6); RBC Distribution Width SD 43.8 fl (35.1-43.9); Red Blood Count 5.43 M/mm3 (4.2-5.4); White Blood Count 10.4 K/mm3 (4.4-11.0)
[2023-01-15 11:07] LABS: ALB/GLOB Ratio 1.1 RATIO (0.9-2.4); AST(SGOT) 22 U/L (15-37); Alanine Aminotransfer ALT/SGPT 37 U/L (13-56); Albumin, Serum 3.7 g/dL (3.2-5.0); Alkaline Phosphatase 93 U/L (45-117); Anion Gap 2 (5-15); BUN 15 mg/dL (7-18); Calcium,Total 9.3 mg/dL (8.5-10.1); Chloride 107 mmol/L (98-107); Cholesterol 195 mg/dL (200); Creatinine, Serum 1.07 mg/dL (0.55-1.02); EST Glomerular Filtration Rate 62 mL/min (>60); Est Glom Filt Rate - Afr Amer 75 mL/min (>60); Globulin 3.5 g/dL (2.2-4.2); Glucose 120 mg/dL (74-106); High Density Lipoprotein 37 mg/dL; Potassium 4.6 mmol/L (3.5-5.1); Protein, Total 7.2 g/dL (6.4-8.2); Sodium Level 138 mmol/L (136-145); Thyroid Stim Hormone (TSH) 1.54 uIU/mL (0.358-3.74); Triglycerides 243 mg/dL; Very Low Density Lipoprotein 49 mg/dL (5-40)
== END | disposition home or self-care (01) ==
LOC: POLAB3 09:02
PROVIDERS: PCP Family Medicine Geriatric Medicine; Visit Provider Family Medicine Geriatric Medicine
DX: R53.83 Other fatigue (principal); E78.5 Hyperlipidemia, unspecified
CPT/HCPCS: 36415; 80053; 80061; 84443; 85025

== ENCOUNTER → 2024-01-28 | Outpatient (CLI) | payer MEDICAID, SELFPAY ==
[2024-01-28 09:34] LABS: Absolute Lymphocyte Count 4.09 X10^3/uL (0.83-4.51); Absolute Neutrophil Count 4.7 X10^3/uL (2.0-7.7); Basophil# 0.09 X10^3/uL; Basophil% 0.9 % (0-1); Eosinophil# 0.29 X10^3/uL; Hematocrit 47.1 % (37-47); Hemoglobin 15.4 g/dL (12.0-15.0); Lymphocyte # 4.09 X10^3/ul (0.83-4.51); Lymphocyte % 42.2 % (19-41); Mean Corp Hgb Conc 32.7 g/dL (32-36); Mean Corpuscular Hgb 28.6 pg (27.0-32.0); Mean Corpuscular Volume 87.4 fL (81-99); Mean Platelet Vol. 9.2 fl (6.2-12.0); Monocyte# 0.52 X10^3/uL; Monocyte% 5.4 % (0-10); NRBC Flagged by Analyzer 0 % (0-5); Neutrophil # 4.68 X10^3/uL (2.7-7.7); Neutrophil % 48.2 % (47-70); Platelet Count 283 K/mm3 (150-450); RBC Distribution Width CV 13.7 % (11.6-14.6); RBC Distribution Width SD 43.6 fl (35.1-43.9); Red Blood Count 5.39 M/mm3 (4.2-5.4); White Blood Count 9.7 K/mm3 (4.4-11.0)
[2024-01-28 09:40] LABS: AST(SGOT) 16 U/L (15-37); Alanine Aminotransfer ALT/SGPT 36 U/L (13-56); Albumin, Serum 3.6 g/dL (3.2-5.0); Alkaline Phosphatase 87 U/L (45-117); Anion Gap 7 (5-15); BUN 15 mg/dL (7-18); BUN/Creat Ratio 11.3 RATIO (10-20); Chloride 110 mmol/L (98-107); Cholesterol 188 mg/dL (200); Creatinine, Serum 1.33 mg/dL (0.55-1.02); EST Glomerular Filtration Rate 48 mL/min (>60); Est Glom Filt Rate - Afr Amer 58 mL/min (>60); Globulin 3.6 g/dL (2.2-4.2); Glucose 133 mg/dL (74-106); High Density Lipoprotein 41 mg/dL; Protein, Total 7.2 g/dL (6.4-8.2); Sodium Level 140 mmol/L (136-145); Triglycerides 187 mg/dL; Very Low Density Lipoprotein 37 mg/dL (5-40)
== END | disposition home or self-care (01) ==
LOC: POLAB3 08:55
PROVIDERS: PCP Family Medicine Geriatric Medicine; Visit Provider Family Medicine Geriatric Medicine
DX: R53.83 Other fatigue (principal); E78.5 Hyperlipidemia, unspecified
CPT/HCPCS: 36415; 80053; 80061; 84443; 85025

== ENCOUNTER → 2024-02-07 | Outpatient (CLI) | payer MEDICAID, SELFPAY ==
[2024-02-07 09:54] LABS: Anion Gap 5 (5-15); BUN 13 mg/dL (7-18); BUN/Creat Ratio 11.1 RATIO (10-20); Calcium,Total 9.2 mg/dL (8.5-10.1); Chloride 109 mmol/L (98-107); Creatinine, Serum 1.17 mg/dL (0.55-1.02); EST Glomerular Filtration Rate 55 mL/min (>60); Est Glom Filt Rate - Afr Amer 67 mL/min (>60); Glucose 181 mg/dL (74-106); Potassium 4.7 mmol/L (3.5-5.1); Sodium Level 140 mmol/L (136-145)
[2024-02-07 13:38] LABS: Hemoglobin A1c 5.8 % (3.8-5.6)
== END | disposition home or self-care (01) ==
PROVIDERS: PCP Family Medicine Geriatric Medicine; Visit Provider Family Medicine Geriatric Medicine
DX: R53.83 Other fatigue (principal); R73.09 Other abnormal glucose
CPT/HCPCS: 36415; 80048; 83036